=== PATIENT | female | born 1965 | race Caucasian/White ===

== ENCOUNTER 2018-05-10 08:43 | Emergency (ER) | payer BC ==
[2018-05-10] MEDS ORDERED: Nitroglycerin TAB 0.4 MG* 0.4 MG TAB SL ONE (08:53)
[2018-05-10] MEDS ORDERED: Morphine INJ* 2 MG/ML 1 ML CARPUJECT IV ONE (08:54)
--- NOTE | 2018-05-10 09:04 | ED ---
HPI Chest Pain - HPI Summary HPI Summary: Patient is a morbidly obese 53-year-old female presenting to the ED with midsternal chest pain radiating to the back between the scapulas which began last evening around 6 PM. She states she was able to fall asleep and denied any pain overnight, however upon awakening this morning the pain developed again. She also is endorsing some numbness and tingling to the bilateral lower extremities. Denies any SOB with this chest pain. Denies any headache, syncopal episodes or visual changes. Other than her morbid obesity, she denies any health problems. She takes no medications regularly. She endorses taking 325 mg aspirin this morning due to her midsternal chest pain, however she normally does not take this on a daily basis. Symptoms are not worse or improved with positioning. Symptoms are not aggravated with exertion or improved with rest. Nothing makes the symptoms better or worse. Denies any recent travel. Denies any history of DVT or PE. While she endorses some numbness or tingling to the bilateral lower extremities, she denies any leg swelling, calf tenderness, erythematous areas to the calves, recent travel, known malignancy. Denies any smoking or EtOH history. Family history includes HTN and hypercholesterolemia. - History of Current Complaint Chief Complaint: EDChestPainROMI Time Seen by Provider: 05/10/18 08:46 Hx Obtained From: Patient Onset/Duration: Started Hours Ago - 15 hours ago Timing: Constant Initial Severity: Moderate Current Severity: Moderate Pain Intensity: 5 Pain Scale Used: 0-10 Numeric Chest Pain Location: Mid Sternal Chest Pain Radiates: Yes Chest Pain Radiates To:: Back, Arm Character: Dull/Aching Aggravating Factor(s): Nothing Alleviating Factor(s): Nothing Associated Signs and Symptoms: Positive: Chest Pain, Numbness - bilateral lower extremities, Tingling - bilateral lower extremities. Negative: Vision Changes, Anxiety, Recent Stress, Headaches, Shortness of Breath, Swelling, Lightheadedness, Diaphoresis, Calf Pain/Swelling - Risk Factors TAD Risk Factors: Family Hx AMI/ACS Risk Factors: Sedentary Lifestyle, Obesity, Dyslipidemia - Allergy/Home Medications Allergies/Adverse Reactions: Allergies Allergy/AdvReac Type Severity Reaction Status Date / Time No Known Allergies Allergy Verified 05/10/18 11:38 PMH/Surg Hx/FS Hx/Imm Hx Previously Healthy: Yes - Immunization History Hx Pertussis Vaccination: No Immunizations Up to Date: Unable to Obtain/Confirm Infectious Disease History: No Infectious Disease History: Denies: Traveled Outside the [place] in Last 30 Days - Social History Occupation: Employed Part-time Lives: With Family Alcohol Use: Rare Hx Substance Use: No Substance Use Type: Reports: None Hx Tobacco Use: Yes Smoking Status (MU): Former Smoker Review of Systems Constitutional: Negative Negative: Fever, Chills, Fatigue, Skin Diaphoresis Positive: Chest Pain Negative: Shortness Of Breath, Cough Negative: Abdominal Pain, Vomiting, Diarrhea, Nausea Genitourinary: Negative Positive: no symptoms reported, see HPI Negative: Arthralgia, Myalgia Positive: Paresthesia - bilateral lower extremities Psychological: Normal All Other Systems Reviewed And Are Negative: Yes Physical Exam Triage Information Reviewed: Yes Vital Signs On Initial Exam: Initial Vitals Temp Pulse Resp BP Pulse Ox 97.7 F 72 18 181/93 98 05/10/18 08:50 05/10/18 08:50 05/10/18 08:50 05/10/18 08:50 05/10/18 08:50 Vital Signs Reviewed: Yes Appearance: Positive: Well-Nourished Skin: Positive: Warm, Skin Color Reflects Adequate Perfusion. Negative: Diaphoretic Head/Face: Positive: Normal Head/Face Inspection Eyes: Positive: EOMI, VINNY, Conjunctiva Clear Neck: Positive: Supple, Nontender, No Lymphadenopathy Respiratory/Lung Sounds: Positive: Clear to Auscultation, Breath Sounds Present Cardiovascular: Positive: RRR, Pulses are Symmetrical in both Upper and Lower Extremities. Negative: Leg Edema Left, Leg Edema Right Musculoskeletal: Positive: Normal, Strength/ROM Intact Neurological: Positive: Sensory/Motor Intact, Alert, Oriented to Person Place, Time, Speech Normal Psychiatric: Positive: Normal, Affect/Mood Appropriate AVPU Assessment: Alert Diagnostics - Vital Signs Vital Signs Temp Pulse Resp BP Pulse Ox 05/10/18 08:50 97.7 F 72 18 181/93 98 - Laboratory Result Diagrams: 05/10/18 08:58 05/10/18 08:58 Lab Statement: Any lab studies that have been ordered have been reviewed, and results considered in the medical decision making process. Chest Pain Course/Dx - Course Course Of Treatment: During the course treatment, the patient is evaluated for mid sternal chest pain radiating through to the back between the scapulas. Pain began approximately at 6 PM last evening, continued until bedtime when the pain spontaneously resolved. Upon awakening this morning, the pain returned. She endorses pain as a aching sensation with radiation intermittently to the left arm without numbness or tingling. However, she is endorsing numbness and tingling to the bilateral lower extremities. She continues to ambulate well and denies any weakness. 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 Chest Xray show pulmonary vascular congestion, however this could also be due to her severe morbid obesity and sedentary lifestyle. Troponin drawn at 8:58am and 11:47am both of which were 0.00. D dimer obtained d/t obesity and sedentary lifestyle with a PERC score 0. Dimer < 200. She is feeling improved and will be discharged home with chest wall pain. She is given Toradol prescription and will follow up with her PCP early next week. - Chest Pain Differential Diagnosis/HQI/PQRI: Acute RI, ACS, Chest Wall - Diagnoses Provider Diagnoses: Chest wall pain Discharge - Sign-Out/Discharge Documenting (check all that apply): Patient Departure - Discharge Plan Condition: Stable Disposition: HOME Prescriptions: Ketorolac TAB * [Toradol TAB *] 10 mg PO Q6H #16 tab Patient Education Materials: Chest Wall Pain (ED) Referrals: Jayden Concepcion MD [Primary Care Provider] - 1 Week Additional Instructions: For your back pain and midsternal chest pain, I recommend taking Toradol 4 times daily 4 days Do not take ibuprofen or other NSAID medication while taking the Toradol if you develop any worsening symptoms, return to the ED immediately - Billing Disposition and Condition Condition: STABLE Disposition: Home
[2018-05-10] MEDS ORDERED: Morphine INJ* 2 MG/ML 1 ML SYRINGE (TWO MG - NEW SYRINGE VERSION) ONE (09:07)
[2018-05-10 09:22] LABS: ABS Basophils 0.1 10^3/ul (0-0.2); ABS Eosinophils 0.2 10^3/ul (0-0.6); ABS Lymphocytes 1.5 10^3/ul (1.0-4.8); ABS Monocytes 0.5 10^3/ul (0-0.8); ABS Neutrophils 7.8 10^3/ul (1.5-7.7); ABS Nucleated RBC 0.01 10^3/ul; Eosinophil % 2.4 % (0-6); Hematocrit 39 % (35-47); Hemoglobin 12.8 g/dl (12.0-16.0); Lymphocyte % 15.2 % (25-47); Mean Corpuscular HGB Conc 33 g/dl (31-36); Mean Corpuscular Hemoglobin 28 pg (27-31); Mean Corpuscular Volume 84 fL (80-97); Mean Platelet Volume 9.7 um3 (7.4-10.4); Platelet Count 217 10^3/ul (150-450); Red Blood Count 4.61 10^6/ul (4.00-5.40); Red Cell Distribution Width 15 % (10.5-15); White Blood Count 10.2 10^3/ul (3.5-10.8)
[2018-05-10 09:23] LABS: Nucleated Red Blood Cells % 0.1
[2018-05-10 09:45] LABS: INR 0.87 (0.77-1.02)
[2018-05-10 09:50] LABS: EGFR Non-African American 91.2 (>60)
--- NOTE | 2018-05-10 10:29 | RAD ---
HISTORY: cp, chest pain COMPARISONS: None VIEWS: 1: frontal portable view of the chest at 9:25 AM FINDINGS: LINES AND TUBES: None. CARDIOMEDIASTINAL SILHOUETTE: The cardiomediastinal silhouette is normal for portable technique. PLEURA: The costophrenic angles are sharp. No pleural abnormalities are noted. LUNG PARENCHYMA: There is prominence of the central pulmonary vasculature. ABDOMEN: The upper abdomen is clear. There is no subphrenic gas. BONES AND SOFT TISSUES: No bone or soft tissue abnormalities are noted. IMPRESSION: PULMONARY VASCULAR CONGESTION
[2018-05-10 11:57] LABS: Urine Appearance Clear; Urine Blood Negative (Negative); Urine Color Colorless; Urine Ketones Negative (Negative); Urine Protein Negative (Negative); Urine Specific Gravity 1.003 (1.010-1.030); Urine Urobilinogen Negative (Negative)
[2018-05-10 12:06] VITALS: BP 163/84
== END 2018-05-10 12:03 | disposition home or self-care (01) ==
LOC: ED 08:43
DX: R07.89 Other chest pain (principal); J81.0 Acute pulmonary edema; E66.01 Morbid (severe) obesity due to excess calories; Z72.3 Lack of physical exercise; Z87.891 Personal history of nicotine dependence; Z82.49 Family history of ischemic heart disease and other diseases of the circulatory system; Z83.49 Family history of other endocrine, nutritional and metabolic diseases
CPT/HCPCS: 36415; 71045; 80053; 81003; 83605; 83880; 84484; 85025; 85379; 85610; 93005; 96374; 99283; A9270-GY; J2270

== ENCOUNTER 2018-05-18 07:18 | Inpatient (IN) | payer BC ==
[2018-05-18] MEDS ORDERED: Senna TAB PO PRN (13:42)
[2018-05-18] MEDS: Atorvastatin* 80 MG TAB PO SCH (17:20)
[2018-05-18] MEDS: Magnesium Hydroxide LIQ* 30 ML UDC PO PRN (17:28)
[2018-05-18] MEDS: Acetaminophen TAB* 325 MG PO PRN (17:28)
--- NOTE | 2018-05-18 17:52 | HP ---
ADMISSION HISTORY AND PHYSICAL: DATE OF ADMISSION: 05/18/18 REASON FOR ADMISSION: Left leg weakness. HISTORY OF PRESENT ILLNESS: Lamar Downey is a 53-year-old female. She has a medical history significant for obesity. On 05/09/18, the patient developed chest pain and pain between her shoulder blades. She thought it was muscular and went to bed. The next morning, she woke up with ongoing chest pain now radiating down her left arm. She called 911 and was brought to the emergency room at [facility]. She had a chest x-ray as well as blood work and ruled out for a myocardial infarct. She also did not have pneumonia on chest x- ray. She was told she could go home. According to the patient, she reported that she was having trouble walking and was having numbness and tingling to both lower extremities. She did have a D-dimer done, which was less than 200. Her troponins came back at 0.00. She was told to take some Toradol and was brought home by a friend. She said she was having some difficulty walking around her house when she got home. She tried to call Dr. Concepcion's office, but he was not available. The nurse suggested that she go back to the emergency room if she was having trouble walking. The patient went to the emergency room at [facility] on 05/10/18. She had an extensive workup including a CAT scan of her head and a brain MRI, which was normal. She had a lumbar puncture, which was completed and was grossly normal aside from elevated protein. Additional lab tests were run. She had an MRI of her cervical, thoracic and lumbar spine. Her cervical spine MRI appeared to show degenerative disk disease at C5-6 and C6-7 that was concerning for cord compression. Neurosurgery evaluated the patient and did not recommend surgical intervention. Neurosurgery also felt that the patient may have functional limb weakness responsible for her symptoms. Psychiatry was consulted to evaluate for conversion disorder. Psychiatry determined that they could not rule out conversion disorder, but they were also concerned for MRI findings of possible spinal cord compression. Of note, the official radiologist's report of the MRI of her cervical spine said there were no signal changes indicative of myelopathy. On physical exam, there was no spasticity suggestive of myelopathy. The patient did have a hemoglobin A1c done, which was elevated at 6.8. However, her routine fingersticks were not concerning and she did not require any insulin while at the [facility]. The patient was started on high dose Lipitor and it was felt that this could be followed up as an outpatient. The patient did have her spinal fluid culture and oligoclonal bands results, which were still pending at this time. The patient was felt to have physical therapy and occupational therapy needs. She is now being admitted for inpatient rehab so that she may return to independent living. PAST MEDICAL HISTORY: Significant for obesity. 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 CURRENT MEDICATIONS: Include: 1. Lipitor. 2. Flexeril for spasms. 3. Heparin for DVT prophylaxis. ALLERGIES: No known drug allergies. SOCIAL HISTORY: The patient is a nonsmoker, rare drinker. She lives by herself in a 2-story house, but stays on 1 level. There are 2 small steps to enter. 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 REVIEW OF SYSTEMS: The patient reports no current shortness of breath or chest pain. PHYSICAL EXAMINATION VITAL SIGNS: The patient's temperature is 97.9, blood pressure is 155/77, pulse 97, respirations 24. HEENT: Her extraocular movements were intact. Her tongue is midline. NECK: Supple. LUNGS: Sounded clear to auscultation bilaterally. HEART: Sounds were regular. S1 and S2 were audible. ABDOMEN: Soft and nontender. EXTREMITIES: Her upper extremities had normal muscle bulk and tone. Her lower extremities did not show any increased tone. Peripheral pulses were intact. NEUROLOGIC: Sensation was altered in both legs. She had difficulty determining sharp from dull. Her muscle strength in her right lower extremity appeared to be at least 4+/5 throughout. On her left lower extremity, she had 3 /5 quadriceps strength. Her dorsiflexion was trace. Plantarflexion was about 4 /5 on the left. Hamstrings were about 2/5. FUNCTIONAL EXAM: She transfers with max assist. ASSESSMENT: Functional limb weakness of the left leg. Workup thus far has not shown any organic cause of her weakness. PLAN: Integrate her into a comprehensive and therapeutic rehab program with the following goals: 1. Physical Therapy will see the patient. They are going to work on functional transfer training, wheelchair mobilities, and ambulation training with a walker. 2. Occupational Therapy will see the patient, work on her activities of daily living including toileting and toilet transfers. 3. Heparin for DVT prophylaxis. 4. For her elevated hemoglobin A1c, we will check fingersticks daily in the morning. This may increase depending on what the numbers look like. 5. We will continue high dose Lipitor for now. 6. Her bowels should be regulated. 7. Advance directives: The patient is a full code. 8. eligibility services representative will be closely involved to make sure that any services and equipment the patient requires are in place prior to discharge. 9. Family training as appropriate. 10. Home with appropriate services. ESTIMATED LENGTH OF STAY: 7 to 10 days. [id number]/CPS #: [id number] KENDRICK
[2018-05-18] MEDS: Cyclobenzaprine TAB* 10 MG PO PRN (21:11)
[2018-05-18] MEDS: Docusate CAP* 100 MG PO SCH (21:14)
[2018-05-18] MEDS: Heparin VIAL(*) 5000 UNITS/ML VIAL (FIVE THOUSAND) SUBCUT SCH (21:27)
[2018-05-19] MEDS: Cyclobenzaprine TAB* 10 MG PO PRN ×3 (06:47→22:49)
[2018-05-19] MEDS: Docusate CAP* 100 MG PO SCH ×2 (10:05→21:26)
[2018-05-19] MEDS: Heparin VIAL(*) 5000 UNITS/ML VIAL (FIVE THOUSAND) SUBCUT SCH ×2 (10:05→21:27)
[2018-05-19] MEDS: Acetaminophen TAB* 325 MG PO PRN ×2 (10:11→17:25)
[2018-05-19] MEDS: Atorvastatin* 80 MG TAB PO SCH (17:26)
--- NOTE | 2018-05-19 18:23 | PN ---
Progress Note Date of Service: 05/19/18 Note: HERMINIA GRAHAM was visited. Therapy notes read and reviewed. She was stronger today and is able to do a transfer now without the EZ stand. Still reports leg weakness on left. Blood sugar elevated but was not drawn until lunch Current Medications: Active Medications Generic Name Dose Route Start Last Admin Trade Name Freq PRN Reason Stop Dose Admin Acetaminophen 650 mg 05/18/18 13:42 05/19/18 17:25 Tylenol Tab* PO 650 mg Q6H PRN Administration FEVER/PAIN Atorvastatin Calcium 80 mg 05/18/18 17:00 05/19/18 17:26 Lipitor* PO 80 mg 1700 RIZWANA Administration Cyclobenzaprine HCl 10 mg 05/18/18 13:56 05/19/18 17:25 Flexeril Tab* PO 10 mg TID PRN Administration SPASMS Docusate Sodium 100 mg 05/18/18 21:00 05/19/18 10:05 Colace Cap* PO 100 mg BID RIZWANA Administration Heparin Sodium (Porcine) 5,000 units 05/18/18 21:00 05/19/18 10:05 Heparin Vial(*) SUBCUT 5,000 units Q12HR RIZWANA Administration Magnesium Hydroxide 30 ml 05/18/18 13:42 05/18/18 17:28 Milk Of Magnesia Liq* PO 30 ml Q6H PRN Administration CONSTIPATION Senna 2 tab 05/18/18 13:42 Senokot Tab* PO BEDTIME PRN CONSTIPATION Vital Signs: Vital Signs Temp Pulse Resp BP Pulse Ox 98.6 F 85 16 144/69 97 05/19/18 15:37 05/19/18 15:37 05/19/18 17:25 05/19/18 15:37 05/19/18 15:37 Lab Results: Laboratory Results - last 24 hr 05/19/18 12:20 POC Glucose (mg/dL) 129 H Exam: LUNGS: Clear bilaterally HEART: reg rhythm ABDOMEN: Soft, +BS EXTREMITIES: normal tone in LEs NEUROLOGIC: left quads, 3/5, hip flexors, 2/5, PF, 4/5, DF, 0/5 Assessment/Plan: 1. Functional limb Weakness: MRIs of CTLS spine at [facility] did not explain weakness , and MRI brain WNL. PT/OT. LP results pending 2. Impaired FBG: will check blood draw tomorrow 3. DVT Prophylaxis: Heparin S/Q 4. Advanced Directives: Full code 5. Leg Spasms: Flexeril PRN 05/19/18 18:22 05/19/18 18:23
[2018-05-20 06:53] LABS: ABS Basophils 0 10^3/ul (0-0.2); ABS Eosinophils 0.5 10^3/ul (0-0.6); ABS Monocytes 0.9 10^3/ul (0-0.8); ABS Neutrophils 6.3 10^3/ul (1.5-7.7); ABS Nucleated RBC 0 10^3/ul; Eosinophil % 4.7 % (0-6); Hematocrit 38 % (35-47); Hemoglobin 12.8 g/dl (12.0-16.0); Lymphocyte % 20.6 % (25-47); Mean Corpuscular HGB Conc 34 g/dl (31-36); Mean Corpuscular Hemoglobin 29 pg (27-31); Mean Corpuscular Volume 84 fL (80-97); Mean Platelet Volume 10.1 um3 (7.4-10.4); Nucleated Red Blood Cells % 0.2; Platelet Count 185 10^3/ul (150-450); Red Blood Count 4.49 10^6/ul (4.00-5.40); Red Cell Distribution Width 15 % (10.5-15); White Blood Count 9.7 10^3/ul (3.5-10.8)
[2018-05-20 07:08] LABS: EGFR Non-African American 92.8 (>60)
[2018-05-20] MEDS: Docusate CAP* 100 MG PO SCH ×2 (08:10→20:50)
[2018-05-20] MEDS: Heparin VIAL(*) 5000 UNITS/ML VIAL (FIVE THOUSAND) SUBCUT SCH ×2 (08:10→20:50)
[2018-05-20] MEDS: Cyclobenzaprine TAB* 10 MG PO PRN ×2 (08:10→20:55)
--- NOTE | 2018-05-20 12:44 | PMRUTEAM ---
PMRU: Team Meeting Current Status: Nursing: Current Status Skin Deviations [Upper Back] Rash Physical Therapy: Current Status Bed Mobility Assistance Not Tested Transfer Moblility Assistance Not Tested Transfer/Bed Mobility Rolling Walker Recommended Devices Ambulation Assistance Contact Guard Assist Ambulation Assistive Devices Rolling Walker Number of Feet Patient 5', 12' and 10' Ambulated Stairs Assistance Not Tested Curb Not Tested Occupational Therapy: Current Status Upper Body Dressing Min Assist Lower Body Dressing Total Assist,2 Person Assist Bathing Max Asst,2 Person Assist Toileting Max Asst,2 Person Assist Toilet Transfer Total Assist,2 Person Assist Shower Transfer Max Asst,2 Person Assist Eating Supervision Rec Therapy: Current Status Summary of Assessment and Pt. was open to conversation - appropriate and Clinical Impression cooperative throughout. Pt. identified with interests and involvement in them prior to admission. Treatment Goals Pt .will engage in leisure activities while on the unit. Treatment Plan Provide RT services and encourage involvement. Goals: Physical Therapy: Initial Goals Bed Mobility Assistance Independent Transfer Mobility Assistance Independent Transfer/Bed Mobility Rolling Walker Recommended Devices Ambulation Independent Ambulation Recommended Devices Rolling Walker Ambulation Distance 300 Stairs Assistance Independent Stair Recommended Devices Two Rails Number of Stairs 5 Physical Therapy: Updated Goals Transfer/Bed Mobility Rolling Walker Recommended Devices Occupational Therapy: Initial Goals Goals to be Completed in (Days 10-14 ) Upper Body Bathing Routine Independent Lower Body Bathing Routine Modified Independent with Upper Body Dressing Routine Independent Lower Body Dressing Routine Modified Independent with Toilet Hygeine and Clothing Modified Independent with Management Routine Toilet Transfer Routine Modified Independent with Step-In Shower Transfer Modified Independent with Routine Tub Transfer Routine Modified Independent with Functional Transfers for ADL Modified Independent with Grooming Routine Independent Feeding Routine Independent Light Housekeeping Tasks Modified Independent with Care Plan: Care Plan ADL's - Improve/Maintain Start: 05/18/18 21:52 Freq: DAILY Status: Active Target: Protocol: Activity Type Activity Date Activity User E-Sign Co-Sign Detail Recorded Client Recorded Date Recorded By Document 05/19/18 16:24 [id number] [id number] 05/19/18 16:24 [id number] 05/19/18 16:24 PMRU Outcome: ADL's/ADL Transfers Orders/Interventions Occupational Therapy Evaluation & Treatment Communication Tool in Patient Room Patient to receive OT 5x/wk for 60-120 Therex min/day Self Care Management Group Therapy UE/LE ADL's with Assist Yes: mod I ADL Transfers with Assist Yes: mod I Toileting: Transfers,Clothing Management Yes: mod I ,Hygeine w/Assist Light Kitchen/Laundry w/Assist Yes Outcome/Goals Met Pt demonstrates significantly improved SPT - requiring CGA x1 at the end of session Pt demonstrates good dynamic and static sitting balance and good sitting tolerance- sitting on mat unsupported for 20min Pt able to lift MICKEY LE approx 6inch off ground while sitting Pt reports pins and needles/ altered sensation in LLE for the last 7 days. This contradicts pt prior report that sensation in LLE was intact Education-Improve/Maintain Start: 05/18/18 21:52 Freq: QSHIFT Status: Active Target: Protocol: Activity Type Activity Date Activity User E-Sign Co-Sign Detail Recorded Client Recorded Date Recorded By Document 05/19/18 20:00 [id number] 05/19/18 23:46 [id number] 05/19/18 20:00 PMRU Outcome: Education Outcome/Goals Demonstrate/ Verbalize Understanding of Written Discharge Instructions Demonstrates Skills Progression Toward Outcome/Goals Progressing /GI-Improve/Maintain Start: 05/18/18 21:52 Freq: QSHIFT Status: Active Target: Protocol: Activity Type Activity Date Activity User E-Sign Co-Sign Detail Recorded Client Recorded Date Recorded By Document 05/19/18 20:00 [id number] 05/19/18 23:46 [id number] 05/19/18 20:00 PMRU Outcome: Genitourinary/ Gastrointestinal Genitourinary- Outcome/Goals Maintain/ Achieve Urinary Continence Maintain/ Achieve Adequate Urinary Output Gastrointestinal-Outcome/Goals Maintain/ Achieve Bowel Regularity in Accordance with Pt's Baseline Remain Free of Emesis Prevent Constipation Progression Toward Outcome/Goals - Progressing Mobility- Improve/Maintain Start: 05/18/18 18:29 Freq: DAILY Status: Active Target: Protocol: Activity Type Activity Date Activity User E-Sign Co-Sign Detail Recorded Client Recorded Date Recorded By Document 05/18/18 18:29 [id number] [id number] 05/18/18 18:30 [id number] 05/18/18 18:29 PMRU Outcome: Mobility Physical Therapy Evaluation and Yes Treatment Activity OOB with Assistance Yes Device Yes Assistance Yes Patient to be seen 5x/wk for 60-120 min/ Therex day for: Mobility Training Gait Training W/C Mobility Balance Outcome/Goals Maintain/ Achieve Baseline Mobility Status Improve Mobility Status Demonstrates Proper Use of Assistive Devices Free from Complications of Immobility Bed Mobility Yes: independent Transfers Yes: independet with RW Gait x ft Yes: independent with RW to 300' Up/Down Stairs Yes: independet up/down 5 stairs with 2 rails Neurological- Improve/Maintain Start: 05/18/18 21:52 Freq: QSHIFT Status: Active Target: Protocol: Activity Type Activity Date Activity User E-Sign Co-Sign Detail Recorded Client Recorded Date Recorded By Document 05/19/18 20:00 [id number] 05/19/18 23:46 [id number] 05/19/18 20:00 PMRU Outcome: Neurological Weakness/Aphasia Weakness Outcome/Goals Maintain/ Achieve Baseline Neurological Status Improve Neurological Status Progression Toward Outcome/Goals Progressing Pain/Comfort- Improve/Maintain Start: 05/18/18 21:52 Freq: QSHIFT Status: Active Target: Protocol: Activity Type Activity Date Activity User E-Sign Co-Sign Detail Recorded Client Recorded Date Recorded By Document 05/19/18 20:00 [id number] 05/19/18 23:46 [id number] 05/19/18 20:00 PMRU Outcome: Pain/Comfort Outcome/Goals Demonstrates Knowledge and Use of Available Comfort Measures Achieves Acceptable Comfort/Pain Level as Determined by Patient/Condit Maintain Comfort Level Allowing Patient to Fully Participate in Rehab Progression Toward Outcome/Goals Progressing Skin- Improve/Maintain Start: 05/18/18 21:52 Freq: QSHIFT Status: Active Target: Protocol: Activity Type Activity Date Activity User E-Sign Co-Sign Detail Recorded Client Recorded Date Recorded By Document 05/19/18 20:00 [id number] 05/19/18 23:46 [id number] 05/19/18 20:00 PMRU Outcome: Skin Skin Risk Level Medium Outcome/Goals Maintain/ Improve Skin Intergrity Free from Decubitus Progression Toward Outcome/Goals Progressing Medicine Note: Length of Stay: 7 days Anticipated Discharge Destination: Tentative Discharge Date: 05/27/18 Discharged to: Home
[2018-05-20] MEDS: Acetaminophen TAB* 325 MG PO PRN (15:13)
--- NOTE | 2018-05-20 16:57 | PN ---
Progress Note Date of Service: 05/20/18 Note: HERMINIA GRAHAM was visited. Therapy notes read and reviewed. She was discussed in interdisciplinary team rounds. She is making gains with therapies daily, her abilities and her findings remain inconsistent and variable. Her 6:30 am lab glucose was 117-high. She may benefit from Metformin Current Medications: Active Medications Generic Name Dose Route Start Last Admin Trade Name Freq PRN Reason Stop Dose Admin Acetaminophen 650 mg 05/18/18 13:42 05/20/18 15:13 Tylenol Tab* PO 650 mg Q6H PRN Administration FEVER/PAIN Atorvastatin Calcium 80 mg 05/18/18 17:00 05/19/18 17:26 Lipitor* PO 80 mg 1700 RIZWANA Administration Cyclobenzaprine HCl 10 mg 05/18/18 13:56 05/20/18 08:10 Flexeril Tab* PO 10 mg TID PRN Administration SPASMS Docusate Sodium 100 mg 05/18/18 21:00 05/20/18 08:10 Colace Cap* PO 100 mg BID RIZWANA Administration Heparin Sodium (Porcine) 5,000 units 05/18/18 21:00 05/20/18 08:10 Heparin Vial(*) SUBCUT 5,000 units Q12HR RIZWANA Administration Magnesium Hydroxide 30 ml 05/18/18 13:42 05/18/18 17:28 Milk Of Magnesia Liq* PO 30 ml Q6H PRN Administration CONSTIPATION Senna 2 tab 05/18/18 13:42 Senokot Tab* PO BEDTIME PRN CONSTIPATION Vital Signs: Vital Signs Temp Pulse Resp BP Pulse Ox 97.4 F 88 18 135/74 97 05/20/18 15:50 05/20/18 15:50 05/20/18 15:50 05/20/18 15:50 05/20/18 15:50 Lab Results: Laboratory Results - last 24 hr 05/20/18 05/20/18 05/20/18 06:25 06:25 07:34 WBC 9.7 RBC 4.49 Hgb 12.8 Hct 38 MCV 84 MCH 29 MCHC 34 RDW 15 Plt Count 185 MPV 10.1 Neut % (Auto) 65.4 Lymph % (Auto) 20.6 L [place] % (Auto) 8.8 H Eos % (Auto) 4.7 Baso % (Auto) 0.5 Absolute Neuts (auto) 6.3 Absolute Lymphs (auto) 2.0 Absolute Monos (auto) 0.9 H Absolute Eos (auto) 0.5 Absolute Basos (auto) 0 Absolute Nucleated RBC 0 Nucleated RBC % 0.2 Sodium 138 Potassium 4.0 Chloride 105 Carbon Dioxide 26 Anion Gap 7 BUN 12 Creatinine 0.67 Est GFR ( Amer) 112.3 Est GFR (Non-Af Amer) 92.8 BUN/Creatinine Ratio 17.9 Glucose 117 H POC Glucose (mg/dL) 121 H Calcium 9.4 Total Bilirubin 0.40 AST 21 ALT 34 Alkaline Phosphatase 74 Total Protein 6.9 Albumin 3.8 Globulin 3.1 Albumin/Globulin Ratio 1.2 05/20/18 12:12 WBC RBC Hgb Hct MCV MCH MCHC RDW Plt Count MPV Neut % (Auto) Lymph % (Auto) [place] % (Auto) Eos % (Auto) Baso % (Auto) Absolute Neuts (auto) Absolute Lymphs (auto) Absolute Monos (auto) Absolute Eos (auto) Absolute Basos (auto) Absolute Nucleated RBC Nucleated RBC % Sodium Potassium Chloride Carbon Dioxide Anion Gap BUN Creatinine Est GFR ( Amer) Est GFR (Non-Af Amer) BUN/Creatinine Ratio Glucose POC Glucose (mg/dL) 95 Calcium Total Bilirubin AST ALT Alkaline Phosphatase Total Protein Albumin Globulin Albumin/Globulin Ratio Exam: LUNGS: Clear bilaterally HEART: reg rhythm ABDOMEN: Soft, +BS EXTREMITIES: normal tone in LEs NEUROLOGIC: left quads, 3/5, hip flexors, 2/5, PF, 4/5, DF, 0/5. Right side 4+/5 Assessment/Plan: 1. Functional limb Weakness: MRIs of CTLS spine at [facility] did not explain weakness , and MRI brain WNL. PT/OT. LP results pending 2. Impaired FBG: Fasting BG elevated this am. May benefit from Metformin 3. DVT Prophylaxis: Heparin S/Q 4. Advanced Directives: Full code 5. Leg Spasms: Flexeril PRN 05/20/18 16:57
[2018-05-20] MEDS: Atorvastatin* 80 MG TAB PO SCH (17:20)
[2018-05-21] MEDS: Acetaminophen TAB* 325 MG PO PRN ×3 (04:03→20:34)
[2018-05-21] MEDS: Cyclobenzaprine TAB* 10 MG PO PRN ×2 (04:03→20:34)
[2018-05-21] MEDS: Heparin VIAL(*) 5000 UNITS/ML VIAL (FIVE THOUSAND) SUBCUT SCH ×2 (11:02→20:35)
[2018-05-21] MEDS: Docusate CAP* 100 MG PO SCH ×2 (11:03→20:34)
[2018-05-21] MEDS: Magnesium Hydroxide LIQ* 30 ML UDC PO PRN (11:46)
--- NOTE | 2018-05-21 15:03 | PN ---
Progress Note Date of Service: 05/21/18 Note: HERMINIA GRAHAM was visited. Therapy notes read and reviewed. She was able to ambulate a bit further today Current Medications: Active Medications Generic Name Dose Route Start Last Admin Trade Name Freq PRN Reason Stop Dose Admin Acetaminophen 650 mg 05/18/18 13:42 05/21/18 11:46 Tylenol Tab* PO 650 mg Q6H PRN Administration FEVER/PAIN Atorvastatin Calcium 80 mg 05/18/18 17:00 05/20/18 17:20 Lipitor* PO 80 mg 1700 RIZWANA Administration Cyclobenzaprine HCl 10 mg 05/18/18 13:56 05/21/18 04:03 Flexeril Tab* PO 10 mg TID PRN Administration SPASMS Docusate Sodium 100 mg 05/18/18 21:00 05/21/18 11:03 Colace Cap* PO 100 mg BID RIZWANA Administration Heparin Sodium (Porcine) 5,000 units 05/18/18 21:00 05/21/18 11:02 Heparin Vial(*) SUBCUT 5,000 units Q12HR RIZWANA Administration Magnesium Hydroxide 30 ml 05/18/18 13:42 05/21/18 11:46 Milk Of Magnesia Liq* PO 30 ml Q6H PRN Administration CONSTIPATION Senna 2 tab 05/18/18 13:42 Senokot Tab* PO BEDTIME PRN CONSTIPATION Vital Signs: Vital Signs Temp Pulse Resp BP Pulse Ox 97.8 F 81 20 119/73 97 05/21/18 06:10 05/21/18 06:10 05/21/18 08:00 05/21/18 06:10 05/21/18 06:10 Exam: LUNGS: Clear bilaterally HEART: reg rhythm ABDOMEN: Soft, +BS EXTREMITIES: normal tone in LEs NEUROLOGIC: left quads, 3/5, hip flexors, 2/5, PF, 4/5, DF, 0/5. Right side 4+/5 Assessment/Plan: 1. Functional limb Weakness: MRIs of [facility]LS spine at [facility] did not explain weakness , and MRI brain WNL. PT/OT. LP results pending 2. Impaired FBG: Fasting BG better this am. 3. DVT Prophylaxis: Heparin S/Q 4. Advanced Directives: Full code 5. Leg Spasms: Flexeril PRN 05/21/18 15:04 05/21/18 15:04
[2018-05-21] MEDS: Atorvastatin* 80 MG TAB PO SCH (16:42)
[2018-05-22] MEDS: Acetaminophen TAB* 325 MG PO PRN (04:41)
[2018-05-22] MEDS: Heparin VIAL(*) 5000 UNITS/ML VIAL (FIVE THOUSAND) SUBCUT SCH ×2 (08:05→21:07)
[2018-05-22] MEDS: Docusate CAP* 100 MG PO SCH ×2 (08:05→21:06)
[2018-05-22] MEDS: Cyclobenzaprine TAB* 10 MG PO PRN ×2 (08:08→18:25)
[2018-05-22] MEDS: Atorvastatin* 80 MG TAB PO SCH (16:42)
[2018-05-22] MEDS: Magnesium Hydroxide LIQ* 30 ML UDC PO PRN (18:25)
--- NOTE | 2018-05-22 20:25 | PN ---
Progress Note Date of Service: 05/22/18 Note: HERMINIA GRAHAM was visited. Nursing notes read and reviewed. She is making progress. Wary about therapy. She does note she had OA pain in her knees before she got sick and took ibuprofen for that Current Medications: Active Medications Generic Name Dose Route Start Last Admin Trade Name Freq PRN Reason Stop Dose Admin Acetaminophen 650 mg 05/18/18 13:42 05/22/18 04:41 Tylenol Tab* PO 650 mg Q6H PRN Administration FEVER/PAIN Atorvastatin Calcium 80 mg 05/18/18 17:00 05/22/18 16:42 Lipitor* PO 80 mg 1700 RIZWANA Administration Cyclobenzaprine HCl 10 mg 05/18/18 13:56 05/22/18 18:25 Flexeril Tab* PO 10 mg TID PRN Administration SPASMS Docusate Sodium 100 mg 05/18/18 21:00 05/22/18 08:05 Colace Cap* PO 100 mg BID RIZWANA Administration Heparin Sodium (Porcine) 5,000 units 05/18/18 21:00 05/22/18 08:05 Heparin Vial(*) SUBCUT 5,000 units Q12HR RIZWANA Administration Magnesium Hydroxide 30 ml 05/18/18 13:42 05/22/18 18:25 Milk Of Magnesia Liq* PO 30 ml Q6H PRN Administration CONSTIPATION Senna 2 tab 05/18/18 13:42 Senokot Tab* PO BEDTIME PRN CONSTIPATION Vital Signs: Vital Signs Temp Pulse Resp BP Pulse Ox 98.4 F 90 18 141/78 96 05/22/18 15:28 05/22/18 15:28 05/22/18 18:25 05/22/18 15:28 05/22/18 15:28 Lab Results: Laboratory Results - last 24 hr 05/21/18 05/22/18 06:06 07:37 POC Glucose (mg/dL) 130 H 125 H Exam: LUNGS: Clear bilaterally HEART: reg rhythm ABDOMEN: Soft, +BS EXTREMITIES: normal tone in LEs NEUROLOGIC: left quads, 3/5, hip flexors, 2/5, PF, 4/5, DF, 0/5. Right side 4+/5 Assessment/Plan: 1. Functional limb Weakness: MRIs of CTLS spine at [facility] did not explain weakness , and MRI brain WNL. PT/OT. LP results pending 2. Impaired FBG: Fasting BG still high. Will consider a trial of Metformin. 3. DVT Prophylaxis: Heparin S/Q 4. Advanced Directives: Full code 5. Leg Spasms: Flexeril PRN 6. Arthritis: Ibuprofen 05/22/18 20:26
[2018-05-23] MEDS: Acetaminophen TAB* 325 MG PO PRN ×2 (00:18→08:37)
[2018-05-23] MEDS: Cyclobenzaprine TAB* 10 MG PO PRN ×2 (00:18→22:11)
[2018-05-23] MEDS: Magnesium Hydroxide LIQ* 30 ML UDC PO PRN (00:19)
[2018-05-23] MEDS: Docusate CAP* 100 MG PO SCH ×2 (08:36→21:38)
[2018-05-23] MEDS: Heparin VIAL(*) 5000 UNITS/ML VIAL (FIVE THOUSAND) SUBCUT SCH ×2 (08:37→21:38)
--- NOTE | 2018-05-23 16:57 | PN ---
Progress Note Date of Service: 05/23/18 Note: HERMINIA GRAHAM was visited. Therapy notes read and reviewed. She is able to transfer with contact guard. Moving a little better. I ordered ibuprofen for her. She has a rash on her back from lying on the hospital bed. Will order hydrocortisone Current Medications: Active Medications Generic Name Dose Route Start Last Admin Trade Name Freq PRN Reason Stop Dose Admin Acetaminophen 650 mg 05/18/18 13:42 05/23/18 08:37 Tylenol Tab* PO 650 mg Q6H PRN Administration FEVER/PAIN Atorvastatin Calcium 80 mg 05/18/18 17:00 05/22/18 16:42 Lipitor* PO 80 mg 1700 RIZWANA Administration Cyclobenzaprine HCl 10 mg 05/18/18 13:56 05/23/18 00:18 Flexeril Tab* PO 10 mg TID PRN Administration SPASMS Docusate Sodium 100 mg 05/18/18 21:00 05/23/18 08:36 Colace Cap* PO 100 mg BID RIZWANA Administration Heparin Sodium (Porcine) 5,000 units 05/18/18 21:00 05/23/18 08:37 Heparin Vial(*) SUBCUT 5,000 units Q12HR RIZWANA Administration Hydrocortisone 1 applic 05/23/18 21:00 Hytone Cream 1%* TOPICAL BID RIZWANA Ibuprofen 400 mg 05/23/18 11:53 Motrin Tab* PO Q6H PRN PAIN Magnesium Hydroxide 30 ml 05/18/18 13:42 05/23/18 00:19 Milk Of Magnesia Liq* PO 30 ml Q6H PRN Administration CONSTIPATION Senna 2 tab 05/18/18 13:42 05/22/18 21:07 Senokot Tab* PO 2 tab BEDTIME PRN Administration CONSTIPATION Vital Signs: Vital Signs Temp Pulse Resp BP Pulse Ox 98.0 F 86 18 119/74 97 05/23/18 06:08 05/23/18 06:08 05/23/18 06:08 05/23/18 06:08 05/23/18 08:00 Lab Results: Laboratory Results - last 24 hr 05/21/18 05/22/18 06:06 07:37 POC Glucose (mg/dL) 130 H 125 H Exam: LUNGS: Clear bilaterally HEART: reg rhythm ABDOMEN: Soft, +BS EXTREMITIES: normal tone in LEs NEUROLOGIC: left quads, 3/5, hip flexors, 2/5, PF, 4/5, DF, 0/5. Right side 4+/5 Assessment/Plan: 1. Functional limb Weakness: MRIs of CTLS spine at [facility] did not explain weakness , and MRI brain WNL. PT/OT. LP results pending 2. Impaired FBG: Fasting BG still high. Will consider a trial of Metformin. 3. DVT Prophylaxis: Heparin S/Q 4. Advanced Directives: Full code 5. Leg Spasms: Flexeril PRN 6. Arthritis: Ibuprofen 05/23/18 16:58
[2018-05-23] MEDS: Atorvastatin* 80 MG TAB PO SCH (17:24)
[2018-05-23] MEDS: Ibuprofen TAB* 400 MG PO PRN (19:41)
[2018-05-23] MEDS: Hydrocortisone 1% CREAM* 30 GM TUBE TOPICAL SCH (21:38)
[2018-05-24] MEDS: Heparin VIAL(*) 5000 UNITS/ML VIAL (FIVE THOUSAND) SUBCUT SCH ×2 (09:11→21:11)
[2018-05-24] MEDS: Cyclobenzaprine TAB* 10 MG PO PRN ×2 (09:11→21:08)
[2018-05-24] MEDS: Acetaminophen TAB* 325 MG PO PRN ×2 (09:12→21:11)
[2018-05-24] MEDS: Hydrocortisone 1% CREAM* 30 GM TUBE TOPICAL SCH ×2 (09:15→21:25)
[2018-05-24] MEDS: Docusate CAP* 100 MG PO SCH ×2 (09:17→21:07)
--- NOTE | 2018-05-24 12:49 | PMRUTEAM ---
PMRU: Team Meeting Current Status: Nursing: Current Status Skin Deviations [Upper Back] Rash Skin Deviation Description [ Hydrocortisone applied Upper Back] Physical Therapy: Current Status Bed Mobility Assistance Not Tested Transfer Moblility Assistance Not Tested Transfer/Bed Mobility Rolling Walker Recommended Devices Ambulation Assistance Supervision Ambulation Assistive Devices Rolling Walker Number of Feet Patient 45' Ambulated Stairs Assistance 2 or More Person Assist Curb Not Tested Occupational Therapy: Current Status Upper Body Dressing Supervision Lower Body Dressing Supervision Bathing Min Assist Toileting Min Assist Toilet Transfer Contact Guard Assist Shower Transfer Contact Guard Assist,2 Person Assist Eating Independent Instrumental ADL Pt requests to fold laundry. Pt folds laundry and puts it on hangers with set up. Rec Therapy: Current Status Summary of Assessment and RT assessment complete and pt. has been very Clinical Impression engaged in leisure activities. 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 Pt. has numerous visitors and is interested in regularly activities. Treatment Goals Pt. will engage in leisure activities while on the unit. Treatment Plan Provide RT services and encourage involvement. Social Work: Current Status Discharge Plan return home with home care svs and support from friends Potential for Family Training TBD Anticipated Discharge Home Destination Discharge With home care svs and support from friends Nutrition: Current Status Monitoring Visited pt this morning and provided written materials on wt loss, cooking tips, and a 5-day meal plan for 1800 kcal diet to promote wt loss. Pt appreciative and states she will look them over . Pt about to eat lunch, so will return at later date to provide further ed and answer any questions. fasting BG 130 05/21; considering a trial of Metformin. Otherwise, no nutrition concerns - BMs noted 05/19, 05/21. Pt eating independently. Goals: Physical Therapy: Initial Goals Bed Mobility Assistance Independent Transfer Mobility Assistance Independent Transfer/Bed Mobility Rolling Walker Recommended Devices Ambulation Independent Ambulation Recommended Devices Rolling Walker Ambulation Distance 300 Stairs Assistance Independent Stair Recommended Devices Two Rails Number of Stairs 5 Physical Therapy: Updated Goals Transfer/Bed Mobility Rolling Walker Recommended Devices Occupational Therapy: Initial Goals Goals to be Completed in (Days 10-14 ) Upper Body Bathing Routine Independent Lower Body Bathing Routine Modified Independent with Upper Body Dressing Routine Independent Lower Body Dressing Routine Modified Independent with Toilet Hygeine and Clothing Modified Independent with Management Routine Toilet Transfer Routine Modified Independent with Step-In Shower Transfer Modified Independent with Routine Tub Transfer Routine Modified Independent with Functional Transfers for ADL Modified Independent with Grooming Routine Independent Feeding Routine Independent Light Housekeeping Tasks Modified Independent with Nutrition: Goals Intervention Goals 1. Pt will make appropriate choices and moderate portions to promote gradual wt loss 2. Pt will maintain regular bowel pattern without constipation (or diarrhea) Social Work: Goals Discharge Plan return home with home care svs and support from friends Potential for Family Training TBD Anticipated Discharge Home Destination Discharge With home care svs and support from friends Care Plan: Care Plan ADL's - Improve/Maintain Start: 05/18/18 21:52 Freq: DAILY Status: Active Target: Protocol: Activity Type Activity Date Activity User E-Sign Co-Sign Detail Recorded Client Recorded Date Recorded By Document 05/19/18 16:24 [id number] 05/19/18 16:24 [id number] 05/19/18 16:24 PMRU Outcome: ADL's/ADL Transfers Orders/Interventions Occupational Therapy Evaluation & Treatment Communication Tool in Patient Room Patient to receive OT 5x/wk for 60-120 Therex min/day Self Care Management Group Therapy UE/LE ADL's with Assist Yes: mod I ADL Transfers with Assist Yes: mod I Toileting: Transfers,Clothing Management Yes: mod I ,Hygeine w/Assist Light Kitchen/Laundry w/Assist Yes Outcome/Goals Met Pt demonstrates significantly improved SPT - requiring CGA x1 at the end of session Pt demonstrates good dynamic and static sitting balance and good sitting tolerance- sitting on mat unsupported for 20min Pt able to lift MICKEY LE approx 6inch off ground while sitting Pt reports pins and needles/ altered sensation in LLE for the last 7 days. This contradicts pt prior report that sensation in LLE was intact Discharge Planning - Improve/Maintain Start: 05/18/18 21:52 Freq: DAILY Status: Active Target: Protocol: Activity Type Activity Date Activity User E-Sign Co-Sign Detail Recorded Client Recorded Date Recorded By Document 05/24/18 01:40 [id number] 05/24/18 01:40 [id number] 05/24/18 01:40 PMRU Outcome: Discharge Planning Update Patient Family No Outcome/Goals Demonstrates Understanding of Discharge Plan Progression Toward Outcome/Goals Progressing Education-Improve/Maintain Start: 05/18/18 21:52 Freq: QSHIFT Status: Active Target: Protocol: Activity Type Activity Date Activity User E-Sign Co-Sign Detail Recorded Client Recorded Date Recorded By Document 05/24/18 08:00 [id number] 05/24/18 09:19 [id number] 05/24/18 08:00 PMRU Outcome: Education Outcome/Goals Encourage Questions Progression Toward Outcome/Goals Progressing /GI-Improve/Maintain Start: 05/18/18 21:52 Freq: QSHIFT Status: Active Target: Protocol: Activity Type Activity Date Activity User E-Sign Co-Sign Detail Recorded Client Recorded Date Recorded By Document 05/24/18 08:00 [id number] 05/24/18 09:19 [id number] 05/24/18 08:00 PMRU Outcome: Genitourinary/ Gastrointestinal Genitourinary- Outcome/Goals Maintain/ Achieve Urinary Continence Maintain/ Achieve Adequate Urinary Output Gastrointestinal-Outcome/Goals Maintain/ Achieve Bowel Regularity in Accordance with Pt's Baseline Remain Free of Emesis Prevent Constipation Progression Toward Outcome/Goals - Progressing Progression Toward Outcome/Goals - GI Progressing Mobility- Improve/Maintain Start: 05/18/18 18:29 Freq: DAILY Status: Active Target: Protocol: Activity Type Activity Date Activity User E-Sign Co-Sign Detail Recorded Client Recorded Date Recorded By Document 05/18/18 18:29 [id number] 05/18/18 18:30 [id number] 05/18/18 18:29 PMRU Outcome: Mobility Physical Therapy Evaluation and Yes Treatment Activity OOB with Assistance Yes Device Yes Assistance Yes Patient to be seen 5x/wk for 60-120 min/ Therex day for: Mobility Training Gait Training W/C Mobility Balance Outcome/Goals Maintain/ Achieve Baseline Mobility Status Improve Mobility Status Demonstrates Proper Use of Assistive Devices Free from Complications of Immobility Bed Mobility Yes: independent Transfers Yes: independet with RW Gait x ft Yes: independent with RW to 300' Up/Down Stairs Yes: independet up/down 5 stairs with 2 rails Neurological- Improve/Maintain Start: 05/18/18 21:52 Freq: QSHIFT Status: Active Target: Protocol: Activity Type Activity Date Activity User E-Sign Co-Sign Detail Recorded Client Recorded Date Recorded By Document 05/24/18 08:00 [id number] 05/24/18 09:19 [id number] 05/24/18 08:00 PMRU Outcome: Neurological Weakness/Aphasia Weakness Weakness/Aphasia Comment Left leg Outcome/Goals Maintain/ Achieve Baseline Neurological Status Improve Neurological Status Maintain/ Improve Strength/ROM Progression Toward Outcome/Goals Progressing Pain/Comfort- Improve/Maintain Start: 05/18/18 21:52 Freq: QSHIFT Status: Active Target: Protocol: Activity Type Activity Date Activity User E-Sign Co-Sign Detail Recorded Client Recorded Date Recorded By Document 05/24/18 08:00 [id number] 05/24/18 09:19 [id number] 05/24/18 08:00 PMRU Outcome: Pain/Comfort Outcome/Goals Demonstrates Knowledge and Use of Available Comfort Measures Achieves Acceptable Comfort/Pain Level as Determined by Patient/Condit Maintain Comfort Level Allowing Patient to Fully Participate in Rehab Progression Toward Outcome/Goals Progressing Skin- Improve/Maintain Start: 05/18/18 21:52 Freq: QSHIFT Status: Active Target: Protocol: Activity Type Activity Date Activity User E-Sign Co-Sign Detail Recorded Client Recorded Date Recorded By Document 05/24/18 08:00 [id number] 05/24/18 09:19 [id number] 05/24/18 08:00 PMRU Outcome: Skin Skin Risk Level Medium Skin Orders Air Mattress Outcome/Goals Maintain/ Improve Skin Intergrity Free from Decubitus Progression Toward Outcome/Goals Progressing Medicine Note: Length of Stay: 1 week Anticipated Discharge Destination: Home Tentative Discharge Date: 05/31/18 Discharged to: Home
[2018-05-24] MEDS: Ibuprofen TAB* 400 MG PO PRN (14:26)
--- NOTE | 2018-05-24 16:55 | PN ---
Progress Note Date of Service: 05/24/18 Note: HERMINIA GRAHAM was visited. Therapy notes read and reviewed. She was discussed in interdisciplinary team rounds. She has made gains with both PT and OT but her abilities fluctuate. Current Medications: Active Medications Generic Name Dose Route Start Last Admin Trade Name Freq PRN Reason Stop Dose Admin Acetaminophen 650 mg 05/18/18 13:42 05/24/18 09:12 Tylenol Tab* PO 650 mg Q6H PRN Administration FEVER/PAIN Atorvastatin Calcium 80 mg 05/18/18 17:00 05/23/18 17:24 Lipitor* PO 80 mg 1700 RIZWANA Administration Cyclobenzaprine HCl 10 mg 05/18/18 13:56 05/24/18 09:11 Flexeril Tab* PO 10 mg TID PRN Administration SPASMS Docusate Sodium 100 mg 05/18/18 21:00 05/24/18 09:17 Colace Cap* PO 100 mg BID RIZWANA Administration Heparin Sodium (Porcine) 5,000 units 05/18/18 21:00 05/24/18 09:11 Heparin Vial(*) SUBCUT 5,000 units Q12HR RIZWANA Administration Hydrocortisone 1 applic 05/23/18 21:00 05/24/18 09:15 Hytone Cream 1%* TOPICAL 1 applic BID RIZWANA Administration Ibuprofen 400 mg 05/23/18 11:53 05/24/18 14:26 Motrin Tab* PO 400 mg Q6H PRN Administration PAIN Magnesium Hydroxide 30 ml 05/18/18 13:42 05/23/18 00:19 Milk Of Magnesia Liq* PO 30 ml Q6H PRN Administration CONSTIPATION Senna 2 tab 05/18/18 13:42 05/22/18 21:07 Senokot Tab* PO 2 tab BEDTIME PRN Administration CONSTIPATION Vital Signs: Vital Signs Temp Pulse Resp BP Pulse Ox 97.3 F 76 18 117/64 94 05/24/18 05:58 05/24/18 05:58 05/24/18 16:23 05/24/18 05:58 05/24/18 08:00 Lab Results: Laboratory Results - last 24 hr 05/23/18 05/24/18 07:44 07:34 POC Glucose (mg/dL) 133 H 122 H Exam: LUNGS: Clear bilaterally HEART: reg rhythm ABDOMEN: Soft, +BS EXTREMITIES: normal tone in LEs NEUROLOGIC: left quads, 3/5, hip flexors, 2/5, PF, 4/5, DF, 0/5. Right side 4+/5 Assessment/Plan: 1. Functional limb Weakness: MRIs of CTLS spine at [facility] did not explain weakness , and MRI brain WNL. PT/OT. LP results pending 2. Impaired FBG: Fasting BG still high. 3. DVT Prophylaxis: Heparin S/Q 4. Advanced Directives: Full code 5. Leg Spasms: Flexeril PRN 6. Arthritis: Ibuprofen 05/24/18 16:55
[2018-05-24] MEDS: Atorvastatin* 80 MG TAB PO SCH (17:25)
[2018-05-25] MEDS: Heparin VIAL(*) 5000 UNITS/ML VIAL (FIVE THOUSAND) SUBCUT SCH ×2 (09:31→21:28)
[2018-05-25] MEDS: Docusate CAP* 100 MG PO SCH ×2 (09:31→21:28)
[2018-05-25] MEDS: Hydrocortisone 1% CREAM* 30 GM TUBE TOPICAL SCH ×2 (09:32→21:28)
[2018-05-25] MEDS: Ibuprofen TAB* 400 MG PO PRN (10:10)
[2018-05-25] MEDS: Cyclobenzaprine TAB* 10 MG PO PRN (15:46)
[2018-05-25] MEDS: Atorvastatin* 80 MG TAB PO SCH (17:53)
--- NOTE | 2018-05-25 21:53 | PN ---
Progress Note Date of Service: 05/25/18 Note: HERMINIA GRAHAM was visited. Therapy notes read and reviewed. Still unable to do stairs. She will need to get stronger to go home safely. Current Medications: Active Medications Generic Name Dose Route Start Last Admin Trade Name Freq PRN Reason Stop Dose Admin Acetaminophen 650 mg 05/18/18 13:42 05/24/18 21:11 Tylenol Tab* PO 650 mg Q6H PRN Administration FEVER/PAIN Atorvastatin Calcium 80 mg 05/18/18 17:00 05/25/18 17:53 Lipitor* PO 80 mg 1700 RIZWANA Administration Cyclobenzaprine HCl 10 mg 05/18/18 13:56 05/25/18 15:46 Flexeril Tab* PO 10 mg TID PRN Administration SPASMS Docusate Sodium 100 mg 05/18/18 21:00 05/25/18 21:28 Colace Cap* PO 100 mg BID RIZWANA Administration Heparin Sodium (Porcine) 5,000 units 05/18/18 21:00 05/25/18 21:28 Heparin Vial(*) SUBCUT 5,000 units Q12HR RIZWANA Administration Hydrocortisone 1 applic 05/23/18 21:00 05/25/18 21:28 Hytone Cream 1%* TOPICAL 1 applic BID RIZWANA Administration Ibuprofen 400 mg 05/23/18 11:53 05/25/18 10:10 Motrin Tab* PO 400 mg Q6H PRN Administration PAIN Magnesium Hydroxide 30 ml 05/18/18 13:42 05/23/18 00:19 Milk Of Magnesia Liq* PO 30 ml Q6H PRN Administration CONSTIPATION Senna 2 tab 05/18/18 13:42 05/22/18 21:07 Senokot Tab* PO 2 tab BEDTIME PRN Administration CONSTIPATION Vital Signs: Vital Signs Temp Pulse Resp BP Pulse Ox 97.8 F 78 16 132/70 98 05/25/18 16:07 05/25/18 16:07 05/25/18 17:59 05/25/18 16:07 05/25/18 16:07 Lab Results: Laboratory Results - last 24 hr 05/25/18 08:38 POC Glucose (mg/dL) 139 H Exam: LUNGS: Clear bilaterally HEART: reg rhythm ABDOMEN: Soft, +BS EXTREMITIES: normal tone in LEs NEUROLOGIC: left quads, 3/5, hip flexors, 2/5, PF, 4/5, DF, 0/5. Right side 4+/5 Assessment/Plan: 1. Functional limb Weakness: MRIs of CTLS spine at [facility] did not explain weakness , and MRI brain WNL. PT/OT. LP results pending 2. Impaired FBG: Fasting BG still high. 3. DVT Prophylaxis: Heparin S/Q 4. Advanced Directives: Full code 5. Leg Spasms: Flexeril PRN 6. Arthritis: Ibuprofen 05/25/18 21:53
[2018-05-26] MEDS: Acetaminophen TAB* 325 MG PO PRN ×2 (05:47→19:52)
[2018-05-26] MEDS: Cyclobenzaprine TAB* 10 MG PO PRN ×2 (05:47→19:51)
[2018-05-26] MEDS: Hydrocortisone 1% CREAM* 30 GM TUBE TOPICAL SCH ×2 (08:58→19:53)
[2018-05-26] MEDS: Docusate CAP* 100 MG PO SCH ×2 (08:58→19:51)
[2018-05-26] MEDS: Heparin VIAL(*) 5000 UNITS/ML VIAL (FIVE THOUSAND) SUBCUT SCH ×2 (08:58→20:00)
[2018-05-26] MEDS: Atorvastatin* 80 MG TAB PO SCH (17:14)
--- NOTE | 2018-05-26 19:39 | PN ---
Progress Note Date of Service: 05/26/18 Note: LAMAR GRAHAM was visited. Therapy notes read and reviewed. I was able to review her LP results which were sent to [facility] [address]. Her LP was negative for bacteria, had 2 oligoclonal bands. This is likely a non-specific finding and she can follow up with a neurologist as an outpatient, She will need to continue working as she cannot do stairs. Current Medications: Active Medications Generic Name Dose Route Start Last Admin Trade Name Freq PRN Reason Stop Dose Admin Acetaminophen 650 mg 05/18/18 13:42 05/26/18 05:47 Tylenol Tab* PO 650 mg Q6H PRN Administration FEVER/PAIN Atorvastatin Calcium 80 mg 05/18/18 17:00 05/26/18 17:14 Lipitor* PO 80 mg 1700 RIZWANA Administration Cyclobenzaprine HCl 10 mg 05/18/18 13:56 05/26/18 05:47 Flexeril Tab* PO 10 mg TID PRN Administration SPASMS Docusate Sodium 100 mg 05/18/18 21:00 05/26/18 08:58 Colace Cap* PO 100 mg BID RIZWANA Administration Heparin Sodium (Porcine) 5,000 units 05/18/18 21:00 05/26/18 08:58 Heparin Vial(*) SUBCUT 5,000 units Q12HR RIZWANA Administration Hydrocortisone 1 applic 05/23/18 21:00 05/26/18 08:58 Hytone Cream 1%* TOPICAL 1 applic BID RIZWANA Administration Ibuprofen 400 mg 05/23/18 11:53 05/25/18 10:10 Motrin Tab* PO 400 mg Q6H PRN Administration PAIN Magnesium Hydroxide 30 ml 05/18/18 13:42 05/23/18 00:19 Milk Of Magnesia Liq* PO 30 ml Q6H PRN Administration CONSTIPATION Senna 2 tab 05/18/18 13:42 05/22/18 21:07 Senokot Tab* PO 2 tab BEDTIME PRN Administration CONSTIPATION Vital Signs: Vital Signs Temp Pulse Resp BP Pulse Ox 98.3 F 89 20 139/74 97 05/26/18 15:52 05/26/18 15:52 05/26/18 16:00 05/26/18 15:52 05/26/18 15:53 Lab Results: Laboratory Results - last 24 hr 05/26/18 08:07 POC Glucose (mg/dL) 130 H Exam: LUNGS: Clear bilaterally HEART: reg rhythm ABDOMEN: Soft, +BS EXTREMITIES: normal tone in LEs NEUROLOGIC: left quads, 4/5, hip flexors, 3/5, PF, 4/5, DF, 0/5. Right side 4+/5 Assessment/Plan: 1. Functional limb Weakness: MRIs of CTLS spine at [facility] did not explain weakness , and MRI brain WNL. PT/OT. LP results non-specific 2. Impaired FBG: Fasting BG still high. Will try consistent carb diet. Will refer to [facility] after discharge 3. DVT Prophylaxis: Heparin S/Q 4. Advanced Directives: Full code 5. Leg Spasms: Flexeril PRN 6. Arthritis: Ibuprofen 05/26/18 19:40
[2018-05-27] MEDS: Acetaminophen TAB* 325 MG PO PRN ×2 (06:39→19:58)
[2018-05-27] MEDS: Cyclobenzaprine TAB* 10 MG PO PRN ×2 (06:41→19:57)
[2018-05-27 06:52] LABS: ABS Basophils 0.1 10^3/ul (0-0.2); ABS Eosinophils 0.4 10^3/ul (0-0.6); ABS Lymphocytes 1.9 10^3/ul (1.0-4.8); ABS Monocytes 0.6 10^3/ul (0-0.8); ABS Neutrophils 5.4 10^3/ul (1.5-7.7); ABS Nucleated RBC 0 10^3/ul; Hematocrit 37 % (35-47); Hemoglobin 12.5 g/dl (12.0-16.0); Lymphocyte % 22.5 % (25-47); Mean Corpuscular HGB Conc 34 g/dl (31-36); Mean Corpuscular Hemoglobin 28 pg (27-31); Mean Corpuscular Volume 84 fL (80-97); Mean Platelet Volume 9.5 um3 (7.4-10.4); Nucleated Red Blood Cells % 0; Platelet Count 185 10^3/ul (150-450); Red Blood Count 4.41 10^6/ul (4.00-5.40); Red Cell Distribution Width 15 % (10.5-15); White Blood Count 8.5 10^3/ul (3.5-10.8)
[2018-05-27 07:08] LABS: EGFR Non-African American 91.2 (>60)
[2018-05-27] MEDS: Hydrocortisone 1% CREAM* 30 GM TUBE TOPICAL SCH ×2 (08:54→19:57)
[2018-05-27] MEDS: Heparin VIAL(*) 5000 UNITS/ML VIAL (FIVE THOUSAND) SUBCUT SCH ×2 (08:54→19:57)
[2018-05-27] MEDS: Docusate CAP* 100 MG PO SCH ×2 (08:55→19:57)
--- NOTE | 2018-05-27 11:22 | PN ---
Progress Note Date of Service: 05/27/18 Note: HERMINIA GRAHAM was visited. Nusing and therapy notes read and reviewed. Yesterday she noted some left anterior lower leg erythema and in the past had cellulitis. It looks better today. No chest pain, shortness of breath or abdominal pain. Started CC diet last night on her own and FS was better this morning. Current Medications: Active Medications Generic Name Dose Route Start Last Admin Trade Name Freq PRN Reason Stop Dose Admin Acetaminophen 650 mg 05/18/18 13:42 05/27/18 06:39 Tylenol Tab* PO 650 mg Q6H PRN Administration FEVER/PAIN Atorvastatin Calcium 80 mg 05/18/18 17:00 05/26/18 17:14 Lipitor* PO 80 mg 1700 RIZWANA Administration Cyclobenzaprine HCl 10 mg 05/18/18 13:56 05/27/18 06:41 Flexeril Tab* PO 10 mg TID PRN Administration SPASMS Docusate Sodium 100 mg 05/18/18 21:00 05/27/18 08:55 Colace Cap* PO 100 mg BID RIZWANA Administration Heparin Sodium (Porcine) 5,000 units 05/18/18 21:00 05/27/18 08:54 Heparin Vial(*) SUBCUT 5,000 units Q12HR RIZWANA Administration Hydrocortisone 1 applic 05/23/18 21:00 05/27/18 08:54 Hytone Cream 1%* TOPICAL 1 applic BID RIZWANA Administration Ibuprofen 400 mg 05/23/18 11:53 05/25/18 10:10 Motrin Tab* PO 400 mg Q6H PRN Administration PAIN Magnesium Hydroxide 30 ml 05/18/18 13:42 05/23/18 00:19 Milk Of Magnesia Liq* PO 30 ml Q6H PRN Administration CONSTIPATION Senna 2 tab 05/18/18 13:42 05/22/18 21:07 Senokot Tab* PO 2 tab BEDTIME PRN Administration CONSTIPATION Vital Signs: Vital Signs Temp Pulse Resp BP Pulse Ox 97.6 F 78 18 124/57 94 05/27/18 05:48 05/27/18 05:48 05/27/18 08:54 05/27/18 05:48 05/27/18 08:00 Lab Results: Laboratory Results - last 24 hr 05/27/18 05/27/18 05/27/18 06:36 06:36 07:42 WBC 8.5 RBC 4.41 Hgb 12.5 Hct 37 MCV 84 MCH 28 MCHC 34 RDW 15 Plt Count 185 MPV 9.5 Neut % (Auto) 64.3 Lymph % (Auto) 22.5 L [place] % (Auto) 7.4 H Eos % (Auto) 5.0 Baso % (Auto) 0.8 Absolute Neuts (auto) 5.4 Absolute Lymphs (auto) 1.9 Absolute Monos (auto) 0.6 Absolute Eos (auto) 0.4 Absolute Basos (auto) 0.1 Absolute Nucleated RBC 0 Nucleated RBC % 0 Sodium 139 Potassium 4.0 Chloride 106 Carbon Dioxide 26 Anion Gap 7 BUN 10 Creatinine 0.68 Est GFR ( Amer) 110.4 Est GFR (Non-Af Amer) 91.2 BUN/Creatinine Ratio 14.7 Glucose 119 H POC Glucose (mg/dL) 119 H Calcium 8.9 Total Bilirubin 0.40 AST 30 ALT 49 Alkaline Phosphatase 80 Total Protein 6.8 Albumin 3.7 Globulin 3.1 Albumin/Globulin Ratio 1.2 Exam: GEN: no acute distress. alert and appropriate LUNGS: Clear bilaterally HEART: regular rate and rhythm ABDOMEN: Soft, +BS, non-tender, non-distended EXTREMITIES: Some left pedal edema, not new. SKIN: very faint dull erythema on left anterior lower leg. Pt reports this is better. Assessment/Plan: 1. Functional limb Weakness: MRIs of CTLS spine at [facility] did not explain weakness , and MRI brain WNL. LP results non-specific with 2 oligoclonal bands. f/u with neurology after discharge. PT/OT. 2. Impaired FBG: Fasting BG still high. Start consistent carb diet. Nutrition consult for consistent carb diet education. Will refer to [facility] after discharge 3. DVT Prophylaxis: Heparin S/Q 4. Advanced Directives: Full code 5. Leg Spasms: Flexeril PRN 6. Arthritis: Ibuprofen 7. Advanced Directives: full code 05/27/18 11:20
[2018-05-27] MEDS: Ibuprofen TAB* 400 MG PO PRN (12:54)
[2018-05-27] MEDS: Atorvastatin* 80 MG TAB PO SCH (17:04)
[2018-05-28] MEDS: Acetaminophen TAB* 325 MG PO PRN ×2 (04:22→20:49)
[2018-05-28] MEDS: Cyclobenzaprine TAB* 10 MG PO PRN ×2 (04:23→20:50)
[2018-05-28] MEDS: Heparin VIAL(*) 5000 UNITS/ML VIAL (FIVE THOUSAND) SUBCUT SCH ×2 (08:12→20:53)
[2018-05-28] MEDS: Docusate CAP* 100 MG PO SCH ×2 (08:12→20:50)
--- NOTE | 2018-05-28 11:23 | PN ---
Progress Note Date of Service: 05/28/18 Note: HERMINIA GRAHAM was visited. Nursing and therapy notes read and reviewed. No chest pain, shortness of breath or abdominal pain. Had some left leg cramping today. Left foot is stably swollen since hospitalization. Knees limit stairs. Current Medications: Active Medications Generic Name Dose Route Start Last Admin Trade Name Freq PRN Reason Stop Dose Admin Acetaminophen 650 mg 05/18/18 13:42 05/28/18 04:22 Tylenol Tab* PO 650 mg Q6H PRN Administration FEVER/PAIN Atorvastatin Calcium 80 mg 05/18/18 17:00 05/27/18 17:04 Lipitor* PO 80 mg 1700 RIZWANA Administration Cyanocobalamin 1,000 mcg 05/28/18 12:00 Vitamin B12 Tab* PO DAILY RIZWANA Cyclobenzaprine HCl 10 mg 05/18/18 13:56 05/28/18 04:23 Flexeril Tab* PO 10 mg TID PRN Administration SPASMS Docusate Sodium 100 mg 05/18/18 21:00 05/28/18 08:12 Colace Cap* PO 100 mg BID RIZWANA Administration Heparin Sodium (Porcine) 5,000 units 05/18/18 21:00 05/28/18 08:12 Heparin Vial(*) SUBCUT 5,000 units Q12HR RIZWANA Administration Hydrocortisone 1 applic 05/23/18 21:00 05/27/18 19:57 Hytone Cream 1%* TOPICAL 1 applic BID RIZWANA Administration Ibuprofen 400 mg 05/23/18 11:53 05/27/18 12:54 Motrin Tab* PO 400 mg Q6H PRN Administration PAIN Ibuprofen 400 mg 05/29/18 09:00 Motrin Tab* PO QAM RIZWANA Magnesium Hydroxide 30 ml 05/18/18 13:42 05/23/18 00:19 Milk Of Magnesia Liq* PO 30 ml Q6H PRN Administration CONSTIPATION Senna 2 tab 05/18/18 13:42 05/22/18 21:07 Senokot Tab* PO 2 tab BEDTIME PRN Administration CONSTIPATION Vital Signs: Vital Signs Temp Pulse Resp BP Pulse Ox 98.9 F 75 18 142/60 95 05/28/18 06:04 05/28/18 06:04 05/28/18 06:30 05/28/18 06:04 05/28/18 07:46 Lab Results: Laboratory Results - last 24 hr 05/27/18 05/28/18 06:36 07:28 Sodium 139 Potassium 4.0 Chloride 106 Carbon Dioxide 26 Anion Gap 7 BUN 10 Creatinine 0.68 Est GFR ( Amer) 110.4 Est GFR (Non-Af Amer) 91.2 BUN/Creatinine Ratio 14.7 Glucose 119 H POC Glucose (mg/dL) 131 H Calcium 8.9 Total Bilirubin 0.40 AST 30 ALT 49 Alkaline Phosphatase 80 Total Protein 6.8 Albumin 3.7 Globulin 3.1 Albumin/Globulin Ratio 1.2 Vitamin B12 264 Folate 10.96 Exam: GEN: no acute distress. alert and appropriate LUNGS: Clear bilaterally HEART: regular rate and rhythm ABDOMEN: Soft, +BS, non-tender, non-distended EXTREMITIES: Some left pedal edema, not new. SKIN: very faint dull more purple discoloration on left anterior lower leg. NEURO: left quads, 4/5, hip flexors 3/5, PF 4/5, DF 0/5, EHL 4/5. Right side 4+/ 5. Sensation impaired bilateral LE, groin and question lower abdomen (stable per patient). Assessment/Plan: 1. Functional limb Weakness: MRIs of CTLS spine at [facility] did not explain weakness , and MRI brain WNL. LP results non-specific with 2 oligoclonal bands. I reviewed [facility] lab reports. Besides abnormal HgbA1c, Vit B12 was low normal. Rechecked here and still in low normal range. Will give Vit B12 supplement and have pending methylmalonic acid, which is a send out. Also added Lyme serum titer. CSF lyme was negative at [place]. f/u with neurology after discharge. PT /OT. 2. Impaired FBG: Fasting BG high. Started consistent carb diet. Nutrition consult for consistent carb diet education. Will refer to [facility] after discharge 3. DVT Prophylaxis: Heparin S/Q 4. Advanced Directives: Full code 5. Leg Spasms: Flexeril PRN 6. Arthritis: Schedule 400mg Ibuprofen QAM so that it is active during PT when doing stairs. Continue also prn as well as tylenol prn. 7. Advanced Directives: full code 05/28/18 11:24
[2018-05-28] MEDS: Hydrocortisone 1% CREAM* 30 GM TUBE TOPICAL SCH ×2 (11:39→21:15)
[2018-05-28] MEDS: Cyanocobalamin TAB* 500 MCG PO SCH (13:40)
[2018-05-28] MEDS: Atorvastatin* 80 MG TAB PO SCH (17:03)
[2018-05-28] MEDS: Ibuprofen TAB* 400 MG PO PRN (23:59)
[2018-05-29] MEDS: Cyanocobalamin TAB* 500 MCG PO SCH (08:19)
[2018-05-29] MEDS: Docusate CAP* 100 MG PO SCH ×2 (08:19→19:54)
[2018-05-29] MEDS: Ibuprofen TAB* 400 MG PO SCH (08:19)
[2018-05-29] MEDS: Magnesium Hydroxide LIQ* 30 ML UDC PO PRN (08:20)
[2018-05-29] MEDS: Heparin VIAL(*) 5000 UNITS/ML VIAL (FIVE THOUSAND) SUBCUT SCH ×2 (08:21→19:56)
--- NOTE | 2018-05-29 11:34 | PN ---
Progress Note Date of Service: 05/29/18 Note: HERMINIA GRAHAM was visited. Nursing notes read and reviewed. No chest pain, shortness of breath or abdominal pain. Had an ache in her left lateral thigh last night that was better with ibuprofen, tylenol and repositioning. This was accompanied by spasms in the leg. Current Medications: Active Medications Generic Name Dose Route Start Last Admin Trade Name Freq PRN Reason Stop Dose Admin Acetaminophen 650 mg 05/18/18 13:42 05/28/18 20:49 Tylenol Tab* PO 650 mg Q6H PRN Administration FEVER/PAIN Atorvastatin Calcium 80 mg 05/18/18 17:00 05/28/18 17:03 Lipitor* PO 80 mg 1700 RIZWANA Administration Cyanocobalamin 1,000 mcg 05/28/18 12:00 05/29/18 08:19 Vitamin B12 Tab* PO 1,000 mcg DAILY RIZWANA Administration Cyclobenzaprine HCl 10 mg 05/18/18 13:56 05/28/18 20:50 Flexeril Tab* PO 10 mg TID PRN Administration SPASMS Docusate Sodium 100 mg 05/18/18 21:00 05/29/18 08:19 Colace Cap* PO 100 mg BID RIZWANA Administration Heparin Sodium (Porcine) 5,000 units 05/18/18 21:00 05/29/18 08:21 Heparin Vial(*) SUBCUT 5,000 units Q12HR RIZWANA Administration Hydrocortisone 1 applic 05/23/18 21:00 05/28/18 21:15 Hytone Cream 1%* TOPICAL 1 applic BID RIZWANA Administration Ibuprofen 400 mg 05/23/18 11:53 05/28/18 23:59 Motrin Tab* PO 400 mg Q6H PRN Administration PAIN Ibuprofen 400 mg 05/29/18 09:00 05/29/18 08:19 Motrin Tab* PO 400 mg QAM RIZWANA Administration Magnesium Hydroxide 30 ml 05/18/18 13:42 05/29/18 08:20 Milk Of Magnesia Liq* PO 30 ml Q6H PRN Administration CONSTIPATION Senna 2 tab 05/18/18 13:42 05/22/18 21:07 Senokot Tab* PO 2 tab BEDTIME PRN Administration CONSTIPATION Vital Signs: Vital Signs Temp Pulse Resp BP Pulse Ox 98.6 F 78 18 115/64 94 05/29/18 05:56 05/29/18 05:56 05/29/18 05:56 05/29/18 05:56 05/29/18 07:31 Lab Results: Laboratory Results - last 24 hr 05/29/18 07:18 POC Glucose (mg/dL) 114 H Exam: GEN: no acute distress. alert and appropriate LUNGS: Clear bilaterally HEART: regular rate and rhythm ABDOMEN: Soft, +BS, non-tender, non-distended EXTREMITIES: Some left pedal edema, not new. NEURO: left quads 4/5, hip flexors 3/5, PF 4/5, DF 0/5, EHL 4/5. Right side 4+/ 5. Sensation impaired bilateral LE, groin and question lower abdomen (stable per patient). Assessment/Plan: 1. Functional limb Weakness: MRIs of CTLS spine at [facility] did not explain weakness , and MRI brain WNL. LP results non-specific with 2 oligoclonal bands. I reviewed [facility] lab reports. Besides abnormal HgbA1c, Vit B12 was low normal. Rechecked here and still in low normal range. Will give Vit B12 supplement and have pending methylmalonic acid, which is a send out. Also added Lyme serum titer. CSF lyme was negative at [place]. f/u with neurology after discharge. PT /OT. 2. Impaired FBG: Fasting BG high. Started consistent carb diet. Nutrition consult for consistent carb diet education. Will refer to [facility] after discharge 3. DVT Prophylaxis: Heparin S/Q 4. Advanced Directives: Full code 5. Leg Spasms: Flexeril PRN 6. Arthritis: Schedule 400mg Ibuprofen QAM so that it is active during PT when doing stairs. Continue also prn as well as tylenol prn. 7. Advanced Directives: full code 05/29/18 11:33
[2018-05-29] MEDS: Hydrocortisone 1% CREAM* 30 GM TUBE TOPICAL SCH ×2 (12:28→20:05)
[2018-05-29] MEDS: Atorvastatin* 80 MG TAB PO SCH (16:59)
[2018-05-29] MEDS: Cyclobenzaprine TAB* 10 MG PO PRN (19:53)
[2018-05-29] MEDS: Acetaminophen TAB* 325 MG PO PRN (19:54)
[2018-05-30] MEDS: Ibuprofen TAB* 400 MG PO PRN (01:52)
[2018-05-30] MEDS: Ibuprofen TAB* 400 MG PO SCH (08:20)
[2018-05-30] MEDS: Docusate CAP* 100 MG PO SCH ×2 (08:20→19:51)
[2018-05-30] MEDS: Cyanocobalamin TAB* 500 MCG PO SCH (08:20)
[2018-05-30] MEDS: Hydrocortisone 1% CREAM* 30 GM TUBE TOPICAL SCH ×2 (08:21→19:52)
[2018-05-30] MEDS: Heparin VIAL(*) 5000 UNITS/ML VIAL (FIVE THOUSAND) SUBCUT SCH ×2 (08:21→20:40)
--- NOTE | 2018-05-30 16:41 | PN ---
Progress Note Date of Service: 05/30/18 Note: HERMINIA GRAHAM was visited. Therapy notes read and reviewed. She is getting closer to being able to climb stairs but not there yet. Current Medications: Active Medications Generic Name Dose Route Start Last Admin Trade Name Freq PRN Reason Stop Dose Admin Acetaminophen 650 mg 05/18/18 13:42 05/29/18 19:54 Tylenol Tab* PO 650 mg Q6H PRN Administration FEVER/PAIN Atorvastatin Calcium 80 mg 05/18/18 17:00 05/29/18 16:59 Lipitor* PO 80 mg 1700 RIZWANA Administration Cyanocobalamin 1,000 mcg 05/28/18 12:00 05/30/18 08:20 Vitamin B12 Tab* PO 1,000 mcg DAILY RIZWANA Administration Cyclobenzaprine HCl 10 mg 05/18/18 13:56 05/29/18 19:53 Flexeril Tab* PO 10 mg TID PRN Administration SPASMS Docusate Sodium 100 mg 05/18/18 21:00 05/30/18 08:20 Colace Cap* PO 100 mg BID RIZWANA Administration Heparin Sodium (Porcine) 5,000 units 05/18/18 21:00 05/30/18 08:21 Heparin Vial(*) SUBCUT 5,000 units Q12HR RIZWANA Administration Hydrocortisone 1 applic 05/23/18 21:00 05/30/18 08:21 Hytone Cream 1%* TOPICAL Not Given BID RIZWANA Ibuprofen 400 mg 05/23/18 11:53 05/30/18 01:52 Motrin Tab* PO 400 mg Q6H PRN Administration PAIN Ibuprofen 400 mg 05/29/18 09:00 05/30/18 08:20 Motrin Tab* PO 400 mg QAM RIZWANA Administration Magnesium Hydroxide 30 ml 05/18/18 13:42 05/29/18 08:20 Milk Of Magnesia Liq* PO 30 ml Q6H PRN Administration CONSTIPATION Senna 2 tab 05/18/18 13:42 05/22/18 21:07 Senokot Tab* PO 2 tab BEDTIME PRN Administration CONSTIPATION Vital Signs: Vital Signs Temp Pulse Resp BP Pulse Ox 98.5 F 87 22 139/67 98 05/30/18 15:50 05/30/18 15:50 05/30/18 15:50 05/30/18 15:50 05/30/18 15:50 Lab Results: Laboratory Results - last 24 hr 05/27/18 05/30/18 06:36 07:49 POC Glucose (mg/dL) 110 H Lyme Disease Serology Negative Exam: GEN: no acute distress. alert and appropriate LUNGS: Clear bilaterally HEART: regular rate and rhythm ABDOMEN: Soft, +BS, non-tender, non-distended EXTREMITIES: Some left pedal edema, not new. NEURO: left quads 4/5, hip flexors 3/5, PF 4/5, DF 0/5, EHL 4/5. Right side 4+/ 5. Sensation impaired bilateral LE Assessment/Plan: 1. Functional limb Weakness: MRIs of CTLS spine at [facility] did not explain weakness , and MRI brain WNL. LP results non-specific with 2 oligoclonal bands. PT/OT. 2. Impaired FBG: Fasting BG high. Consistent carb diet. Nutrition consult for consistent carb diet education. Will refer to [facility] after discharge 3. DVT Prophylaxis: Heparin S/Q 4. Advanced Directives: Full code 5. Leg Spasms: Flexeril PRN 6. Arthritis: Schedule 400mg Ibuprofen QAM so that it is active during PT when doing stairs. Continue also prn as well as tylenol prn. 7. Advanced Directives: full code 05/30/18 16:42
[2018-05-30] MEDS: Atorvastatin* 80 MG TAB PO SCH (16:52)
[2018-05-30] MEDS: Baclofen TAB* 10 MG PO PRN (19:55)
[2018-05-31] MEDS: Acetaminophen TAB* 325 MG PO PRN (03:49)
[2018-05-31] MEDS: Baclofen TAB* 10 MG PO PRN ×2 (03:53→22:11)
[2018-05-31] MEDS: Heparin VIAL(*) 5000 UNITS/ML VIAL (FIVE THOUSAND) SUBCUT SCH ×2 (09:02→20:56)
[2018-05-31] MEDS: Docusate CAP* 100 MG PO SCH ×2 (09:02→20:56)
[2018-05-31] MEDS: Ibuprofen TAB* 400 MG PO SCH (09:02)
[2018-05-31] MEDS: Cyanocobalamin TAB* 500 MCG PO SCH (09:02)
[2018-05-31] MEDS: Hydrocortisone 1% CREAM* 30 GM TUBE TOPICAL SCH ×2 (09:04→20:58)
--- NOTE | 2018-05-31 12:26 | PMRUTEAM ---
PMRU: Team Meeting Current Status: Nursing: Current Status Skin Deviations [Left Lower Rash Leg] Skin Deviations [Upper Back] Rash Skin Deviation Description [ redness old celulites, healing Left Lower Leg] Skin Deviation Description [ hydrocortisone applied Upper Back] Bladder Current Status Continent, walks to bathroom (7) Bowel Current Status Continent, bathroom (6) Nutrition Current Status Adequate Medication Current Status Verbalizes meds Physical Therapy: Current Status Bed Mobility Assistance Not Tested Transfer Moblility Assistance Supervision Transfer/Bed Mobility Standard Walker Recommended Devices Ambulation Assistance Supervision Ambulation Assistive Devices Rolling Walker Number of Feet Patient 50' Ambulated Stairs Assistance Contact Guard Assist Stairs Recommended Devices Two Rails Number of Stairs 2 Curb Not Tested Manual Wheelchair Control/ Bilateral UE's Technique Wheelchair Propulsion Ability Standby Assistance Wheelchair Distance (ft) 100' Objective Comments continue to work on squats and LE stabiltiy/ strength in order to again attempt stair training. patient has difficulty with LE pain, limiting ability to test/work on this skill. 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 No LOB or unsteadiness noted. Rec Therapy: Current Status Summary of Assessment and RT assessment complete and pt. has been very Clinical Impression engaged in leisure activities. 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 Pt. has numerous visitors and is interested in regularly activities. Treatment Goals Pt. will engage in leisure activities while on the unit. Treatment Plan Provide RT services and encourage involvement. Social Work: Current Status Discharge Plan return home with home care svs and support from friends and family Potential for Family Training n/a pt lives alone Anticipated Discharge Home Destination Discharge With home care svs and support from friends and family Nutrition: Current Status Monitoring pt visited today to follow-up education provided . Pt had no specific questions, but conversation ensued re: portion control for wt loss and overall carb control to help manage T2DM. BGs are remaining in 120-130 range, and pt wishes to avoid metformin, if possible. Stated that she has been drinking a fair amt of cranberry juice cocktail to help prevent UTI. Discussed other fluid options to help prevent UTI, and discussed the benefit of fresh fruit vs fruit juice on glycemic control. She requested that the cranberry juice she ordered for the next four meals be taken off her trays. She also expressed her desire to quit "cold turkey" with added sugars and is not ordering desserts "at ALL", even though small amounts are acceptable. In short, moderation, small portion sizes, and frequent " meals" recommended. Available to support and provide further assistance re: wt loss and diet- controlled DM. Suggest consistent carb (vs regular) diet. Goals: Physical Therapy: Initial Goals Bed Mobility Assistance Independent Transfer Mobility Assistance Independent Transfer/Bed Mobility Rolling Walker Recommended Devices Ambulation Independent Ambulation Recommended Devices Rolling Walker Ambulation Distance 300 Stairs Assistance Independent Stair Recommended Devices Two Rails Number of Stairs 5 Physical Therapy: Updated Goals Transfer/Bed Mobility Rolling Walker Recommended Devices Occupational Therapy: Initial Goals Goals to be Completed in (Days 10-14 ) Upper Body Bathing Routine Independent Lower Body Bathing Routine Modified Independent with Upper Body Dressing Routine Independent Lower Body Dressing Routine Modified Independent with Toilet Hygeine and Clothing Modified Independent with Management Routine Toilet Transfer Routine Modified Independent with Step-In Shower Transfer Modified Independent with Routine Tub Transfer Routine Modified Independent with Functional Transfers for ADL Modified Independent with Grooming Routine Independent Feeding Routine Independent Light Housekeeping Tasks Modified Independent with Nursing: Goals Bladder Goal Independent (7) Bowel Goal 6 Medication at discharge will stool softener Nutrition Goal Independent Medication Goal Independent Nutrition: Goals Intervention Goals 1. Pt will make appropriate choices and moderate portions to promote gradual wt loss 2. Pt will maintain regular bowel pattern without constipation (or diarrhea) Social Work: Goals Discharge Plan return home with home care svs and support from friends and family Potential for Family Training n/a pt lives alone Anticipated Discharge Home Destination Discharge With home care svs and support from friends and family Care Plan: Care Plan ADL's - Improve/Maintain Start: 05/18/18 21:52 Freq: DAILY Status: Active Target: Protocol: Activity Type Activity Date Activity User E-Sign Co-Sign Detail Recorded Client Recorded Date Recorded By Document 05/27/18 14:20 [id number] 05/27/18 14:20 [id number] 05/27/18 14:20 PMRU Outcome: ADL's/ADL Transfers Orders/Interventions Occupational Therapy Evaluation & Treatment Communication Tool in Patient Room Patient to receive OT 5x/wk for 60-120 Therex min/day Self Care Management Group Therapy UE/LE ADL's with Assist Yes: mod I ADL Transfers with Assist Yes: mod I Toileting: Transfers,Clothing Management Yes: mod I ,Hygeine w/Assist Light Kitchen/Laundry w/Assist Yes Outcome/Goals Met Pt demonstrates increased I in showering and toileting requiring S for these tasks. Pt c/o leg spasms less today Pt provides conflicting information about sensation in MICKEY LE Pt requests A for tasks she is functionally I with Discharge Planning - Improve/Maintain Start: 05/18/18 21:52 Freq: DAILY Status: Active Target: Protocol: Activity Type Activity Date Activity User E-Sign Co-Sign Detail Recorded Client Recorded Date Recorded By Document 05/31/18 00:00 [id number] 05/31/18 00:23 [id number] 05/31/18 00:00 PMRU Outcome: Discharge Planning Update Patient Family No Outcome/Goals Demonstrates Understanding of Discharge Plan Progression Toward Outcome/Goals Progressing Education-Improve/Maintain Start: 05/18/18 21:52 Freq: QSHIFT Status: Active Target: Protocol: Activity Type Activity Date Activity User E-Sign Co-Sign Detail Recorded Client Recorded Date Recorded By Document 05/31/18 08:00 [id number] 05/31/18 09:26 [id number] 05/31/18 08:00 PMRU Outcome: Education Outcome/Goals Encourage Questions Progression Toward Outcome/Goals Progressing /GI-Improve/Maintain Start: 05/18/18 21:52 Freq: QSHIFT Status: Complete Target: Protocol: Activity Type Activity Date Activity User E-Sign Co-Sign Detail Recorded Client Recorded Date Recorded By Document 05/24/18 17:48 [id number] 05/24/18 17:48 [id number] 05/24/18 17:48 PMRU Outcome: Genitourinary/ Gastrointestinal Genitourinary- Outcome/Goals Maintain/ Achieve Urinary Continence Maintain/ Achieve Adequate Urinary Output Gastrointestinal-Outcome/Goals Maintain/ Achieve Bowel Regularity in Accordance with Pt's Baseline Remain Free of Emesis Prevent Constipation Genitourinary- Outcome/Goals Met Maintain/ Achieve Urinary Continence Gastrointestinal-Outcome/Goals Met Maintain/ Achieve Bowel Regularity in Accordance with Pt's Baseline Mobility- Improve/Maintain Start: 05/18/18 18:29 Freq: DAILY Status: Active Target: Protocol: Activity Type Activity Date Activity User E-Sign Co-Sign Detail Recorded Client Recorded Date Recorded By Document 05/18/18 18:29 [id number] 05/18/18 18:30 [id number] 05/18/18 18:29 PMRU Outcome: Mobility Physical Therapy Evaluation and Yes Treatment Activity OOB with Assistance Yes Device Yes Assistance Yes Patient to be seen 5x/wk for 60-120 min/ Therex day for: Mobility Training Gait Training W/C Mobility Balance Outcome/Goals Maintain/ Achieve Baseline Mobility Status Improve Mobility Status Demonstrates Proper Use of Assistive Devices Free from Complications of Immobility Bed Mobility Yes: independent Transfers Yes: independet with RW Gait x ft Yes: independent with RW to 300' Up/Down Stairs Yes: independet up/down 5 stairs with 2 rails Neurological- Improve/Maintain Start: 05/18/18 21:52 Freq: QSHIFT Status: Active Target: Protocol: Activity Type Activity Date Activity User E-Sign Co-Sign Detail Recorded Client Recorded Date Recorded By Document 05/31/18 08:00 [id number] 05/31/18 09:26 [id number] 05/31/18 08:00 PMRU Outcome: Neurological Weakness/Aphasia Weakness Weakness/Aphasia Comment Left leg Outcome/Goals Maintain/ Achieve Baseline Neurological Status Improve Neurological Status Maintain/ Improve Strength/ROM Progression Toward Outcome/Goals Progressing Pain/Comfort- Improve/Maintain Start: 05/18/18 21:52 Freq: QSHIFT Status: Active Target: Protocol: Activity Type Activity Date Activity User E-Sign Co-Sign Detail Recorded Client Recorded Date Recorded By Document 05/31/18 08:00 [id number] 05/31/18 09:26 [id number] 05/31/18 08:00 PMRU Outcome: Pain/Comfort Outcome/Goals Demonstrates Knowledge and Use of Available Comfort Measures Achieves Acceptable Comfort/Pain Level as Determined by Patient/Condit Maintain Comfort Level Allowing Patient to Fully Participate in Rehab Progression Toward Outcome/Goals Progressing Skin- Improve/Maintain Start: 05/18/18 21:52 Freq: QSHIFT Status: Complete Target: Protocol: Activity Type Activity Date Activity User E-Sign Co-Sign Detail Recorded Client Recorded Date Recorded By Document 05/29/18 07:34 [id number] 05/29/18 07:34 [id number] 05/29/18 07:34 PMRU Outcome: Skin Skin Risk Level Medium Outcome/Goals Maintain/ Improve Skin Intergrity Free from Decubitus Outcome/Goals Met Maintain/ Improve Skin Intergrity Free from Decubitus Medicine Note: Length of Stay: 2 days Anticipated Discharge Destination: Home Tentative Discharge Date: 06/02/18 Discharged to: Home
[2018-05-31] MEDS: Atorvastatin* 80 MG TAB PO SCH (17:11)
--- NOTE | 2018-05-31 17:44 | PN ---
Progress Note Date of Service: 05/31/18 Note: HERMINIA GRAHAM was visited. Therapy notes read and reviewed. She was discussed in interdisciplinary team rounds. She was unable to do stairs today. Will try again tomorrow. She is not sure if Baclofen more effective than Flexeril for leg spasms Current Medications: Active Medications Generic Name Dose Route Start Last Admin Trade Name Freq PRN Reason Stop Dose Admin Acetaminophen 650 mg 05/18/18 13:42 05/31/18 03:49 Tylenol Tab* PO 650 mg Q6H PRN Administration FEVER/PAIN Atorvastatin Calcium 80 mg 05/18/18 17:00 05/31/18 17:11 Lipitor* PO 80 mg 1700 RIZWANA Administration Baclofen 5 mg 05/30/18 17:10 05/31/18 03:53 Lioresal Tab* PO 5 mg TID PRN Administration SPASMS Cyanocobalamin 1,000 mcg 05/28/18 12:00 05/31/18 09:02 Vitamin B12 Tab* PO 1,000 mcg DAILY RIZWANA Administration Docusate Sodium 100 mg 05/18/18 21:00 05/31/18 09:02 Colace Cap* PO 100 mg BID RIZWANA Administration Heparin Sodium (Porcine) 5,000 units 05/18/18 21:00 05/31/18 09:02 Heparin Vial(*) SUBCUT 5,000 units Q12HR RIZWANA Administration Hydrocortisone 1 applic 05/23/18 21:00 05/31/18 09:04 Hytone Cream 1%* TOPICAL 1 applic BID RIZWANA Administration Ibuprofen 400 mg 05/23/18 11:53 05/30/18 01:52 Motrin Tab* PO 400 mg Q6H PRN Administration PAIN Ibuprofen 400 mg 05/29/18 09:00 05/31/18 09:02 Motrin Tab* PO 400 mg QAM RIZWANA Administration Magnesium Hydroxide 30 ml 05/18/18 13:42 05/29/18 08:20 Milk Of Magnesia Liq* PO 30 ml Q6H PRN Administration CONSTIPATION Senna 2 tab 05/18/18 13:42 05/22/18 21:07 Senokot Tab* PO 2 tab BEDTIME PRN Administration CONSTIPATION Vital Signs: Vital Signs Temp Pulse Resp BP Pulse Ox 97.9 F 87 18 145/78 95 05/31/18 17:09 05/31/18 17:09 05/31/18 17:09 05/31/18 17:09 05/31/18 17:29 Lab Results: Laboratory Results - last 24 hr 05/31/18 07:35 POC Glucose (mg/dL) 107 H Exam: GENERAL: no acute distress. alert and appropriate LUNGS: Clear bilaterally HEART: regular rate and rhythm ABDOMEN: Soft, +BS, non-tender, non-distended EXTREMITIES: Some left pedal edema, not new. NEUROLOGIC: left quads 4/5, hip flexors 3/5, PF 4/5, DF 0/5, EHL 4/5. Right side 4+/5. Sensation impaired bilateral LE Assessment/Plan: 1. Functional limb Weakness: MRIs of CTLS spine at [facility] did not explain weakness , and MRI brain WNL. LP results non-specific with 2 oligoclonal bands. PT/OT. 2. Impaired FBG: Fasting BG high. Consistent carb diet. Nutrition consult for consistent carb diet education. Will refer to [facility] after discharge 3. DVT Prophylaxis: Heparin S/Q 4. Advanced Directives: Full code 5. Leg Spasms: Flexeril PRN 6. Arthritis: Schedule 400mg Ibuprofen QAM so that it is active during PT when doing stairs. Continue also prn as well as tylenol prn. 7. Advanced Directives: full code 05/31/18 17:44
[2018-06-01] MEDS: Acetaminophen TAB* 325 MG PO PRN ×2 (00:24→14:43)
[2018-06-01] MEDS: Cyanocobalamin TAB* 500 MCG PO SCH (08:12)
[2018-06-01] MEDS: Ibuprofen TAB* 400 MG PO SCH (08:12)
[2018-06-01] MEDS: Heparin VIAL(*) 5000 UNITS/ML VIAL (FIVE THOUSAND) SUBCUT SCH ×2 (08:12→20:43)
[2018-06-01] MEDS: Docusate CAP* 100 MG PO SCH ×2 (08:12→20:43)
[2018-06-01] MEDS: Hydrocortisone 1% CREAM* 30 GM TUBE TOPICAL SCH ×2 (11:02→20:49)
[2018-06-01] MEDS: Atorvastatin* 80 MG TAB PO SCH (17:03)
--- NOTE | 2018-06-01 18:17 | PN ---
Progress Note Date of Service: 06/01/18 Note: HERMINIA GRAHAM was visited. Therapy notes read and reviewed. She was able to do the stairs today. I think she is safe to go home tomorrow. She can follow up with Dr. Concepcion. BS still a little high. Baclofen was not better than flexeril Current Medications: Active Medications Generic Name Dose Route Start Last Admin Trade Name Freq PRN Reason Stop Dose Admin Acetaminophen 650 mg 05/18/18 13:42 06/01/18 14:43 Tylenol Tab* PO 650 mg Q6H PRN Administration FEVER/PAIN Atorvastatin Calcium 80 mg 05/18/18 17:00 06/01/18 17:03 Lipitor* PO 80 mg 1700 RIZWANA Administration Baclofen 5 mg 05/30/18 17:10 05/31/18 22:11 Lioresal Tab* PO 5 mg TID PRN Administration SPASMS Cyanocobalamin 1,000 mcg 05/28/18 12:00 06/01/18 08:12 Vitamin B12 Tab* PO 1,000 mcg DAILY RIZWANA Administration Docusate Sodium 100 mg 05/18/18 21:00 06/01/18 08:12 Colace Cap* PO 100 mg BID RIZWANA Administration Heparin Sodium (Porcine) 5,000 units 05/18/18 21:00 06/01/18 08:12 Heparin Vial(*) SUBCUT 5,000 units Q12HR RIZWANA Administration Hydrocortisone 1 applic 05/23/18 21:00 06/01/18 11:02 Hytone Cream 1%* TOPICAL 1 applic BID RIZWANA Administration Ibuprofen 400 mg 05/23/18 11:53 05/30/18 01:52 Motrin Tab* PO 400 mg Q6H PRN Administration PAIN Ibuprofen 400 mg 05/29/18 09:00 06/01/18 08:12 Motrin Tab* PO 400 mg QAM RIZWANA Administration Magnesium Hydroxide 30 ml 05/18/18 13:42 05/29/18 08:20 Milk Of Magnesia Liq* PO 30 ml Q6H PRN Administration CONSTIPATION Senna 2 tab 05/18/18 13:42 05/22/18 21:07 Senokot Tab* PO 2 tab BEDTIME PRN Administration CONSTIPATION Vital Signs: Vital Signs Temp Pulse Resp BP Pulse Ox 97.8 F 81 18 131/72 99 06/01/18 16:01 06/01/18 16:01 06/01/18 16:01 06/01/18 16:01 06/01/18 16:55 Lab Results: Laboratory Results - last 24 hr 05/27/18 06/01/18 06:36 07:34 POC Glucose (mg/dL) 110 H Methylmalonic Acid 0.14 Exam: GENERAL: no acute distress. alert and appropriate LUNGS: Clear bilaterally HEART: regular rate and rhythm ABDOMEN: Soft, +BS, non-tender, non-distended EXTREMITIES: Some left pedal edema, not new. NEUROLOGIC: left quads 4/5, hip flexors 3/5, PF 4/5, DF 0/5, EHL 4/5. Right side 4+/5. Sensation impaired bilateral LE Assessment/Plan: 1. Functional limb Weakness: MRIs of CTLS spine at [facility] did not explain weakness , and MRI brain WNL. LP results non-specific. Lyme titer negative. PT/OT. 2. Impaired FBG: Fasting BG high. Consistent carb diet. Nutrition consult for consistent carb diet education. Will refer to [facility] after discharge 3. DVT Prophylaxis: Heparin S/Q 4. Advanced Directives: Full code 5. Leg Spasms: Baclofen was tried. Not effective. Will increase to 10 mg at HS PRN 6. Arthritis: 400mg Ibuprofen. Continue also prn as well as tylenol prn. 7. Advanced Directives: full code 06/01/18 18:21
[2018-06-01] MEDS ORDERED: Baclofen TAB* 10 MG PO PRN (18:25)
[2018-06-02] MEDS: Acetaminophen TAB* 325 MG PO PRN (04:28)
[2018-06-02] MEDS: Ibuprofen TAB* 400 MG PO SCH (08:12)
[2018-06-02] MEDS: Cyanocobalamin TAB* 500 MCG PO SCH (08:12)
[2018-06-02] MEDS: Docusate CAP* 100 MG PO SCH (08:12)
[2018-06-02] MEDS: Heparin VIAL(*) 5000 UNITS/ML VIAL (FIVE THOUSAND) SUBCUT SCH (08:13)
[2018-06-02] MEDS: Hydrocortisone 1% CREAM* 30 GM TUBE TOPICAL SCH (08:14)
[2018-06-02 12:40] VITALS: BP 151/79
--- NOTE | 2018-06-03 09:01 | DS ---
CC: Dr. Jayden Concepcion * DISCHARGE SUMMARY: DATE OF ADMISSION: 05/18/18 DATE OF DISCHARGE: 06/02/18 DISCHARGE DIAGNOSES: 1. Functional limb weakness. 2. Impaired fasting blood glucose. 3. Spasms, left leg. 4. Obesity. 5. 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 HISTORY OF ILLNESS AND HOSPITAL COURSE: For complete history of the events leading up to her rehab stay, please see the history and physical dictated by me on 05/18/18. While on the rehab unit, the patient was fairly stable from a medical point of view. She had elevated fasting blood glucoses every day while she was on the rehab unit. It was decided to try dietary modifications first. The patient was put on a consistent-carbohydrate diet. Her fasting blood glucoses were better following that move, but still elevated in the 120 range. She will follow up with her primary care doctor. She was started on Lipitor at [facility] and remained on Lipitor while on the rehab unit. The patient did have spasms in her lower extremities. She was on Flexeril for this. She thought that the Flexeril was ineffective, so she was later changed to baclofen. The treating providers of [facility] were unable to explain her weakness in her left leg as well as her sensory difficulties in both legs. A serum Lyme titer was sent while on the rehab unit, which came back as negative. Also sent was a methylmalonic acid test, which was not back at the time of this discharge. It was noted that her vitamin B12 was low normal at the [facility]. She was started on vitamin B12 supplements. The patient was seen by both Physical and Occupational Therapy and made good gains with both disciplines. With Physical Therapy at the time of admission, the patient required moderate assistance of 2 people to do a transfer, she was able to ambulate with min-assist 2 feet. With Occupational Therapy at the time of admission, she required supervision for upper body dressing, total assistance for lower body dressing, total assistance for toileting, total assistance for toilet transfers. By the time of discharge, the patient was independent in toileting and toilet transfers, independent in dressing and her ADLs. With Physical Therapy, she was independently ambulating , independently going up and down stairs. The patient did have a loss of balance on the day of discharge, but no injuries occurred. The patient said she was going home with 24- hour supervision and wished to go home. She did not want to consider going to a Group Home Facility. The patient was therefore discharged home on 06/02/18. The patient was examined on the day of discharge by myself. Her examination was stable. Her sensory exam in her lower extremities still showed deficits that did not follow a dermatomal pattern. She also had inconsistent weakness in her left lower extremity. DISCHARGE DIET: Consistent-carbohydrate. DISCHARGE MEDICATIONS: Included, 1. Lipitor 80 mg daily. 2. Baclofen 10 mg at bedtime as needed for spasms. 3. Vitamin B12 1000 mcg daily. 4. Ibuprofen 400 mg every 6 hours as needed. SERVICES AFTER DISCHARGE: Through visiting nurse service. She will have home nursing, home physical therapy, and a home health aide. Follow up with Dr. Jayden Concepcion on 06/10/18. TIME SPENT: The time for this discharge was approximately 55 minutes, greater than half of which was spent with the patient discussing services after discharge, exercises after discharge, diet after discharge, and followup with her primary care doctor. Also discussed were strategies to decrease her risk for falling at home. [id number]/[facility] #: [id number] KENDRICK
== END 2018-06-02 13:25 | disposition home health service (06) | DRG 860 ==
LOC: PMRU 11:02
PROVIDERS: ADMIT Physical Medicine & Rehabilitation; ATTEND Physical Medicine & Rehabilitation
PROC: F07Z5ZZ Bed Mobility Treatment (ICD-10-PCS; principal; 2018-05-18)
PROC: F07Z9ZZ Gait Training/Functional Ambulation Treatment (ICD-10-PCS; 2018-05-18)
PROC: F07Z8ZZ Transfer Training Treatment (ICD-10-PCS; 2018-05-18)
PROC: F07Z4ZZ Wheelchair Mobility Treatment (ICD-10-PCS; 2018-05-18)
PROC: F08Z0ZZ Bathing/Showering Techniques Treatment (ICD-10-PCS; 2018-05-18)
PROC: F08Z1ZZ Dressing Techniques Treatment (ICD-10-PCS; 2018-05-18)
PROC: F08Z3ZZ Feeding/Eating Treatment (ICD-10-PCS; 2018-05-18)
DX: R53.1 Weakness (principal); Z68.44 Body mass index [BMI] 60.0-69.9, adult; E66.9 Obesity, unspecified; R25.2 Cramp and spasm; R73.01 Impaired fasting glucose; E53.8 Deficiency of other specified B group vitamins; R21 Rash and other nonspecific skin eruption; M17.0 Bilateral primary osteoarthritis of knee
CPT/HCPCS: 36415; 80053; 82607; 82746; 83921; 85025; 86618; A9270-GY; J1644

== ENCOUNTER 2021-10-24 10:10 | Inpatient (IN) ==
[2021-10-24] MEDS ORDERED: methylPREDNISolone SOD SUCC 1000 MG ML VIAL IVPB ONE (12:16)
[2021-10-24] MEDS ORDERED: Magnesium Hydroxide LIQ 30 ML UDC PO PRN (14:00)
[2021-10-24] MEDS ORDERED: methylPREDNISolone SOD SUCC 1000 MG in NS 0.9% 100 ML IVPB ONE (15:00)
[2021-10-24 15:06] LABS: ABS Basophils 0.1 10^3/ul (0-0.2); ABS Eosinophils 0.3 10^3/ul (0-0.6); ABS Lymphocytes 1.8 10^3/ul (1.0-4.8); ABS Monocytes 0.5 10^3/ul (0-0.8); ABS Neutrophils 5.4 10^3/ul (1.5-7.7); Eosinophil % 4.1 %; Hematocrit 37 % (35-47); Hemoglobin 12.3 g/dL (12.0-16.0); Lymphocyte % 22.2 %; Mean Corpuscular HGB Conc 33 g/dL (31-36); Mean Corpuscular Hemoglobin 29 pg (27-31); Mean Corpuscular Volume 86 fL (80-97); Mean Platelet Volume 9.5 fL (7.4-10.4); Nucleated Red Blood Cells % 0.1; Platelet Count 215 10^3/uL (150-450); Red Blood Count 4.32 10^6 /uL (3.70-4.87); Red Cell Distribution Width 15 % (10-15)
[2021-10-24 15:28] LABS: Albumin 4.2 g/dL (3.2-5.2); Albumin/Globulin Ratio 1.4 (1-3); C Reactive Protein 7.53 mg/L (<8.01); Calcium 9.4 mg/dL (8.6-10.3); Globulin 3.1 g/dL (2-4); Potassium 3.7 mmol/L (3.5-5.0); Total Bilirubin 0.4 mg/dL (0.2-1.0); Total Protein 7.3 g/dL (6.4-8.9); eGFR CKD-EPI 72.1 (>60)
[2021-10-24 16:14] LABS: Urine Appearance Clear; Urine Bilirubin Negative (Negative); Urine Blood Negative (Negative); Urine Color Colorless; Urine Glucose Negative (Negative); Urine Ketones Negative (Negative); Urine Nitrite Negative (Negative); Urine Protein Negative (Negative); Urine Specific Gravity 1.002 (1.002-1.030); Urine Urobilinogen Negative (Negative)
[2021-10-24 16:19] LABS: Erythrocyte Sed Rate 41 mm/Hr (0-29)
[2021-10-24 16:24] LABS: Urine Bacteria 1+ (Absent); Urine Red Blood Cell Absent (Absent); Urine Squamous Epithelial Cell Present (Absent); Urine White Blood Cell Trace(0-5/hpf) (Absent)
[2021-10-24] MEDS ORDERED: Enoxaparin 40 MG/0.4 ML SYR SUBCUT SCH (17:00)
[2021-10-25] MEDS ORDERED: TURMERIC 400 MG PO SCH (09:00)
[2021-10-25] MEDS ORDERED: [UNRECOGNIZED DRUG - OTHER] PO SCH (09:00)
[2021-10-25] MEDS ORDERED: Calcium Citrate 200 mg TAB PO SCH (09:00)
[2021-10-25] MEDS ORDERED: Fluticasone NASAL SPRAY 50MCG 16 gm SPRAY BTL INTRANASAL SCH (09:00)
[2021-10-25] MEDS ORDERED: CMCS: Meloxicam 7.5 mg TAB (NF) PO SCH (09:00)
[2021-10-25] MEDS ORDERED: methylPREDNISolone SOD SUCC 1,000 MG in NS 0.9% 1000 ml BAG 1,000 ML IVPB SCH (09:00)
[2021-10-25 09:30] LABS: ABS Lymphocytes 1.1 10^3/ul (1.0-4.8); ABS Monocytes 0.1 10^3/ul (0-0.8); ABS Neutrophils 12.5 10^3/ul (1.5-7.7); Eosinophil % 0.1 %; Hematocrit 41 % (35-47); Hemoglobin 13.4 g/dL (12.0-16.0); Lymphocyte % 7.9 %; Mean Corpuscular HGB Conc 33 g/dL (31-36); Mean Corpuscular Hemoglobin 28 pg (27-31); Mean Corpuscular Volume 85 fL (80-97); Mean Platelet Volume 9.8 fL (7.4-10.4); Platelet Count 257 10^3/uL (150-450); Red Blood Count 4.75 10^6 /uL (3.70-4.87); Red Cell Distribution Width 15 % (10-15); White Blood Count 13.7 10^3/uL (3.5-10.8)
[2021-10-25 09:56] LABS: Albumin 4.4 g/dL (3.2-5.2); Albumin/Globulin Ratio 1.3 (1-3); Calcium 9.3 mg/dL (8.6-10.3); Globulin 3.4 g/dL (2-4); Magnesium 1.8 mg/dL (1.9-2.7); Phosphorus 2.6 mg/dL (2.5-5.0); Potassium 3.8 mmol/L (3.5-5.0); Total Bilirubin 0.5 mg/dL (0.2-1.0); Total Protein 7.8 g/dL (6.4-8.9); eGFR CKD-EPI 88.8 (>60)
[2021-10-25 10:24] LABS: TSH Ultra Thyroid Stim Horm 0.83 mcIU/mL (0.34-5.60)
[2021-10-25 11:44] VITALS: BP 161/76
[2021-10-25] MEDS ORDERED: methylPREDNISolone SOD SUCC 1,000 MG in NS 0.9% 100 ml BAG 100 ML IVPB SCH (15:00)
[2021-10-27 14:21] LABS: Copper Level 1.2 mcg/mL (0.75-1.45)
[2021-10-30 11:03] LABS: NMO/AQP4 IgG Negative (Negative)
== END 2021-10-25 16:25 | disposition home or self-care (01) | DRG 347 ==
LOC: ED 10:10 → EDHOLD 14:00 → SSU 17:14
PROVIDERS: ADMIT Student in an Organized Health Care Education/Training Program; ATTEND Internal Medicine

== ENCOUNTER 2024-10-19 06:35 | Observation (INO) ==
[~2024-10-19 06:35] MED LIST: NS 0.45% 1000 ml BAG 1,000 ML IV SCH; Naloxone 0.4 mg VIAL 0.4 mg/ml 1 ml VIAL IV PRN; ROPIVACAINE 5 MG/ML 30 ML BTL (0.5%) ONE
[2024-10-19] MEDS ORDERED: Ondansetron 4 mg VIAL 2 MG/ML 2 ml VIAL ONE ×2 (06:50→13:02)
[2024-10-19] MEDS ORDERED: Sevoflurane BOTTLE ONE (06:50)
[2024-10-19] MEDS ORDERED: Dexamethasone IV 4 MG/ML VIAL 1 ml VIAL ONE ×2 (06:50→09:56)
[2024-10-19] MEDS ORDERED: Phenylephrine IV 10 MG/ML 1 ml VIAL ONE (06:50)
[2024-10-19] MEDS ORDERED: Lidocaine 2% PF 5 ML VIAL ONE ×2 (06:50→11:35)
[2024-10-19] MEDS ORDERED: Propofol 0 MG/0 ML BTL ONE (06:50)
[2024-10-19] MEDS ORDERED: Midazolam 2 mg/2 ml VIAL 1 mg/ml 2 ml VIAL (2 mg) ONE ×2 (06:53→09:31)
[2024-10-19] MEDS ORDERED: fentaNYL 100 mcg/2 ml 50 MCG/ML VIAL ONE ×7 (06:53→14:24)
[2024-10-19] MEDS ORDERED: Glycopyrrolate IV 0.2 MG/ML 1 ML VIAL ONE (07:06)
[2024-10-19 07:31] LABS: Rapid COVID-19 Molecular Undetected (Undetected)
[2024-10-19] MEDS ORDERED: Rocuronium 50 mg VIAL 10 mg/ml 5 ml VIAL (50 mg) ONE (08:03)
[2024-10-19] MEDS ORDERED: Propofol 10 MG/ML 20 ML BTL ONE (08:06)
[2024-10-19] MEDS: Buffered Lidocaine 1% SYRIN 1 ml INTRADERM ONE (08:21)
[2024-10-19] MEDS: Lactated Ringers 1000 ml BAG 1,000 ML IV SCH ×2 (08:22→15:00)
[2024-10-19] MEDS ORDERED: ceFAZolin 2 GM PREMIX 2 GM/50 ML BAG ONE (08:33)
[2024-10-19] MEDS ORDERED: Dexmedetomidine 200 mcg/2 ml 2 ml VIAL (200 mcg) ONE (08:42)
[2024-10-19] MEDS ORDERED: KETAMINE HCL 10 MG/ML 20 ml VIAL (200 MG) ONE (09:42)
[2024-10-19] MEDS ORDERED: Tranexamic Acid 1 GM/100ML BAG 2,000 MG/200 ML BAG IV ONE (09:44)
[2024-10-19] MEDS ORDERED: Acetaminophen IV 1 GM/100ML 1,000 MG/100 ML BAG IV ONE (10:04)
[2024-10-19] MEDS ORDERED: Calcium Carb (TUMS) 500 mg CHEW TAB PO PRN (12:02)
[2024-10-19] MEDS ORDERED: Magnesium Hydroxide LIQ 30 ML UDC PO PRN (12:02)
[2024-10-19] MEDS ORDERED: Ondansetron ODT 4 mg TAB 4 MG TAB PO PRN (12:02)
[2024-10-19] MEDS ORDERED: Ondansetron 4 mg VIAL 2 MG/ML 2 ml VIAL IV PRN (12:02)
[2024-10-19] MEDS ORDERED: Lactulose 30 ml UDC PO PRN (12:02)
[2024-10-19] MEDS: fentaNYL 100 mcg/2 ml 50 MCG/ML VIAL IV PRN (12:18)
[2024-10-19] MEDS: Ondansetron 4 mg VIAL 2 MG/ML 2 ml VIAL IV PRN (13:03)
[2024-10-19] MEDS: Acetaminophen IV 1 GM/100ML 1,000 MG/100 ML BAG IV ONE (17:34)
[2024-10-19] MEDS: ceFAZolin 2 GM PREMIX 2 GM/50 ML BAG IV SCH (18:01)
[2024-10-19] MEDS: Morphine 2 MG/ML SYRINGE IV PRN (18:45)
[2024-10-19] MEDS: Magnesium Hydroxide LIQ 30 ML UDC PO SCH (21:42)
[2024-10-20] MEDS: Lactated Ringers 1000 ml BAG 1,000 ML IV ONE (06:02)
[2024-10-20 06:11] LABS: Hematocrit 38.7 % (35-45); Hemoglobin 12.8 g/dL (11.5-14.3); Mean Platelet Volume 11.1 fL (7.5-11.2); Platelet Count 192 10^3/uL (150-450)
[2024-10-20 06:45] LABS: Calcium 8.8 mg/dL (8.6-10.3); Creatinine, Serum 0.7 mg/dL (0.51-0.95); Potassium 4.1 mmol/L (3.5-5.0); eGFR CKD-EPI 100.8 (>60)
[2024-10-20] MEDS: Vitamin THERAPEUTIC TAB PO SCH (08:43)
[2024-10-20 09:54] VITALS: BP 96/81
== END 2024-10-20 14:15 | disposition home or self-care (01) ==
LOC: OR 06:35 → SSU 06:35
PROVIDERS: ADMIT Orthopaedic Surgery Adult Reconstructive Orthopaedic Surgery; ATTEND Orthopaedic Surgery Adult Reconstructive Orthopaedic Surgery